=== PATIENT | female | born 1985 | race African-American/Black ===

== ENCOUNTER 2017-06-25 20:52 | Observation (INO) ==
[2017-06-25 21:52] LABS: Basophils % 0.6 %; Eosinophils # 0.1 K/mcL (0.0-0.6); Eosinophils % 1.4 %; Hematocrit 39.5 % (35.3-44.9); Hemoglobin 12.4 g/dL (11.5-15.4); Immature Granulocytes % 0.2 % (0-4); Lymphocytes # 2.7 K/mcL (0.6-4.6); Lymphocytes % 43.6 %; Mean Corpuscular HGB Conc 31.4 g/dL (31.6-35.5); Mean Corpuscular Hemoglobin 25.9 pg (28.0-33.3); Mean Corpuscular Volume 82.5 fL (83.0-100.0); Mean Platelet Volume 11.6 fL (9.4-12.4); Monocytes # 0.5 K/mcL (0.0-1.3); Monocytes % 8.6 %; Neutrophils # 2.9 K/mcL (1.6-8.9); Platelet Count 235 K/mcL (140-400); Red Blood Count 4.79 M/mcL (3.82-4.97); Red Cell Distribution Width 13.1 % (11.5-14.5); Segmented Neutrophils % 45.6 %
[2017-06-25 21:53] LABS: Bilirubin,Urine Negative (Negative); Blood,Urine Negative (Negative); Clarity,Urine Clear (Clear); Color,Urine Yellow (Yellow); Glucose,Urine (UA) Normal (Normal); Ketones,Urine Negative (Negative); Leukocyte Esterase,Urine Negative (Negative); Nitrite,Urine Negative (Negative); Protein,Urine Negative (Neg-Trace); Urobilinogen,Urine Normal (Normal)
[2017-06-25 22:07] LABS: BUN/Creatinine Ratio 8 (6-26); Blood Urea Nitrogen 8 mg/dL (7-20); Calcium 10.1 mg/dL (8.6-10.8); Carbon Dioxide 23 mEq/L (19-29); Chloride 112 mEq/L (98-109); Glucose 74 mg/dL (70-99); Osmolality,Calculated 291 (280-300); Potassium 3.6 mEq/L (3.5-4.5); Sodium 142 mEq/L (136-145); eGFR For African Americans > 60 (> 60); eGFR For Non-African Americans > 60 (> 60)
[2017-06-25] MEDS ORDERED: 0.9 % Sodium Chloride 1,000 ML IVC ONE (22:30)
[2017-06-25] MEDS ORDERED: Metoclopramide 10 MG/2 ML VIAL IVP ONE (22:41)
--- NOTE | 2017-06-25 22:43 | Emergency Department Note ---
Disposition Clinical Impression: Paresthesias, Weakness Headache Qualifiers: Headache type: unspecified Headache chronicity pattern: acute headache Intractability: not intractable Qualified Code(s): R51 - Headache Disposition: Admitted As Inpatient Condition: Good General Adult HPI - General Chief complaint: ED Seizure Stated complaint: seizure today STORY Time Seen by Provider: 06/25/17 21:54 Source: patient Limitations: no limitations Nursing Notes Reviewed: Yes Vital Signs Reviewed: Yes - History of Present Illness HPI Narrative: Patient here for evaluation of headache and paresthesias after seizure earlier today. The patient has been dealing with some unexplained nausea throughout the course of the week. She saw her neurologist earlier this week where she got a shot for her seizures. She does not know what the shot was one of those 4. States that it did help initially but the symptoms came back. Today the patient was on a riding lawnmower when she was able to feel her seizure coming on. Patient's got off the lawnmower and proceeded to have a seizure. The patient continued to have a headache after waking up from her seizure and was unable to relieve it at home which prompted her to come to the hospital. Patient does not have a history of migraines. Patient describes this as left- sided headache with photophobia and associated paresthesias on the left arm and left leg. On exam patient has significant difference to the upper and lower extremity with 4 out of 5 muscle strength. Neuro exam otherwise normal. Patient has not had any other symptoms similar to this in the past. Pain Scale: 10 - Related Data Home Medications Medication Instructions Recorded Confirmed LevETIRAcetam [Keppra] 1,000 mg PO BID 04/19/16 11/06/16 Topiramate [Topamax] 100 mg PO QAM 04/19/16 11/06/16 Paroxetine HCl [Paxil] 40 mg PO 02/27/17 Previous Rx's Medication Instructions Recorded Promethazine [Phenergan] 25 mg PO Q8HR PRN #15 tablet 02/27/17 Allergies Allergy/AdvReac Type Severity Reaction Status Date / Time No Known Allergies Allergy Verified 11/06/16 17:20 Review of Systems: CONSTITUTIONAL: No weight loss, fever, chills, weakness or fatigue. HEENT: Eyes: No visual changes. Ears, Nose, Throat: No hearing loss, difficulty talking or unable to swallow. SKIN: No rash or itching. CARDIOVASCULAR: No chest pain, chest pressure or chest discomfort. No palpitations or edema. RESPIRATORY: No shortness of breath, cough or sputum. GASTROINTESTINAL: No anorexia, nausea, vomiting or diarrhea. No abdominal pain or blood. GENITOURINARY: No burning on urination or hematuria. NEUROLOGICAL: Headache with paresthesias and weakness of the left side. No dizziness, syncope, No change in bowel or bladder control. MUSCULOSKELETAL: No muscle pain, back pain, joint pain or stiffness. 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 - Social History Smoking Status: Never smoker Smokeless Tobacco Status: No Alcohol use: Reports: none Drug use: Reports: none Physical Exam General appearance: NAD, conversant Eyes: anicteric sclerae, moist conjunctivae; PERRL HENT: Atraumatic; oropharynx clear with moist mucous membranes and no mucosal ulcerations Neck: Normal inspection; Trachea midline; FROM, supple Lungs: CTA, with normal respiratory effort and no intercostal retractions CV: RRR, no MRGs Abdomen: Soft, non-tender; no rebound or gaurding Extremities: No peripheral edema or extremity lymphadenopathy Skin: Normal temperature; no rash, ulcers or lesions Psych: Appropriate mood and affect Neuro: alert and oriented to person, place and time - General Limitations: no limitations General appearance: alert, in no apparent distress - Expanded Neurological Exam Patient oriented to: Present: person, place, time Speech: Present: fluid speech Cranial nerves: EOM function (II, III, IV, ): Normal, facial sensation (V): Normal, facial palsy (VII): Normal, gag reflex (IX): Normal, spinal accessory function (XI): Normal, tongue deviation (XII): Normal Cerebellar function: finger to nose: Normal, heel to donald: Normal Cerebellar function: normal gait Motor strength - LUE: 4/5 Motor strength - RUE: 5/5 Motor strength - LLE: 4/5 Motor strength - RLE: 5/5 Sensory exam upper extremity: light touch: Abnormal Left Sensory exam lower extremity: light touch: Abnormal Left Coma Scale Eye Opening: Spontaneous Coma Scale Motor Response: Obeys Commands Coma Scale Verbal Response: Oriented Coma Scale Total: 15 Course - Reevaluation(s) Reevaluation #1: Patient has continued symptoms after a migraine cocktail. - Consultations Consultation #1: Discussed with Dr. Martinez neurology. If patient does not respond to headache cocktail and fluids the patient should be admitted for further evaluation and MRI. He will be happy to see the patient has a consult in the hospital. Consultation #2: Discussed with hospitalist Dr. ASHLEY. Patient accepted for observation Vital Signs Temperature 97.4 F L 06/25/17 20:53 Pulse Rate 90 06/25/17 20:53 Respiratory Rate 16 06/25/17 20:53 Blood Pressure 108/79 06/25/17 20:53 O2 Sat by Pulse Oximetry 96 06/25/17 20:53 Temperature 98.2 F 06/26/17 05:02 Pulse Rate 68 06/26/17 05:02 Respiratory Rate 19 06/26/17 05:02 Blood Pressure 118/55 06/26/17 05:02 O2 Sat by Pulse Oximetry 98 06/26/17 05:02 Oxygen Delivery Oxygen Delivery Room Air Medical Decision Making - Lab Data Result diagrams: 06/25/17 21:40 06/25/17 21:40 Lab Results 06/25/17 06/25/17 06/25/17 Range/Units 21:40 21:40 21:40 WBC 6.3 (4.3-11.1) K/mcL RBC 4.79 (3.82-4.97) M/mcL Hgb 12.4 (11.5-15.4) g/dL Hct 39.5 (35.3-44.9) % MCV 82.5 L (83.0-100.0) fL MCH 25.9 L (28.0-33.3) pg MCHC 31.4 L (31.6-35.5) g/dL RDW 13.1 (11.5-14.5) % Plt Count 235 (140-400) K/mcL MPV 11.6 (9.4-12.4) fL Immature Gran % 0.2 (0-4) % Seg Neutrophils % 45.6 % Lymphocytes % 43.6 % Monocytes % 8.6 % Eosinophils % 1.4 % Basophils % 0.6 % Neutrophils # 2.9 (1.6-8.9) K/mcL Lymphocytes # 2.7 (0.6-4.6) K/mcL Monocytes # 0.5 (0.0-1.3) K/mcL Eosinophils # 0.1 (0.0-0.6) K/mcL Basophils # 0.0 (0.0-0.2) K/mcL Sodium (136-145) mEq/L Potassium (3.5-4.5) mEq/L Chloride (98-109) mEq/L Carbon Dioxide (19-29) mEq/L BUN (7-20) mg/dL Creatinine (0.57-1.11) mg/dL Est GFR ( Amer) (> 60) Est GFR (Non-Af Amer) (> 60) BUN/Creatinine Ratio (6-26) Glucose (70-99) mg/dL Calculated Osmolality (280-300) Calcium (8.6-10.8) mg/dL Troponin I (0-0.03) ng/mL Urine Color Yellow (Yellow) Urine Clarity Clear (Clear) Urine pH 7.0 (5.0-8.0) pH Units Ur Specific Ronald 1.010 (1.010-1.025) Urine Protein Negative (Neg-Trace) mg/dL Urine Glucose (UA) Normal (Normal) mg/dL Urine Ketones Negative (Negative) mg/dL Urine Blood Negative (Negative) Urine Nitrite Negative (Negative) Urine Bilirubin Negative (Negative) Urine Urobilinogen Normal (Normal) mg/dL Ur Leukocyte Esterase Negative (Negative) Ur Culture Indicated? NO (NO) Urine Test Negative (Negative) 06/25/17 06/26/17 Range/Units 21:40 00:37 WBC (4.3-11.1) K/mcL RBC (3.82-4.97) M/mcL Hgb (11.5-15.4) g/dL Hct (35.3-44.9) % MCV (83.0-100.0) fL MCH (28.0-33.3) pg MCHC (31.6-35.5) g/dL RDW (11.5-14.5) % Plt Count (140-400) K/mcL MPV (9.4-12.4) fL Immature Gran % (0-4) % Seg Neutrophils % % Lymphocytes % % Monocytes % % Eosinophils % % Basophils % % Neutrophils # (1.6-8.9) K/mcL Lymphocytes # (0.6-4.6) K/mcL Monocytes # (0.0-1.3) K/mcL Eosinophils # (0.0-0.6) K/mcL Basophils # (0.0-0.2) K/mcL Sodium 142 (136-145) mEq/L Potassium 3.6 (3.5-4.5) mEq/L Chloride 112 H (98-109) mEq/L Carbon Dioxide 23 (19-29) mEq/L BUN 8 (7-20) mg/dL Creatinine 1.00 (0.57-1.11) mg/dL Est GFR ( Amer) > 60 (> 60) Est GFR (Non-Af Amer) > 60 (> 60) BUN/Creatinine Ratio 8 (6-26) Glucose 74 (70-99) mg/dL Calculated Osmolality 291 (280-300) Calcium 10.1 (8.6-10.8) mg/dL Troponin I 0.00 (0-0.03) ng/mL Urine Color (Yellow) Urine Clarity (Clear) Urine pH (5.0-8.0) pH Units Ur Specific Ronald (1.010-1.025) Urine Protein (Neg-Trace) mg/dL Urine Glucose (UA) (Normal) mg/dL Urine Ketones (Negative) mg/dL Urine Blood (Negative) Urine Nitrite (Negative) Urine Bilirubin (Negative) Urine Urobilinogen (Normal) mg/dL Ur Leukocyte Esterase (Negative) Ur Culture Indicated? (NO) Urine Test (Negative) Attestation Statement - Attestation Attestation: I, Rashad Kamara, examined this patient and my medical decision-making was reviewed with the PASSENGER CAR UPHOLSTERER APPRENTICE/PA/Advanced Practice Nurse/Resident Physician. I agree with the documented findings, disposition and treatment plan as described except to the extent set forth below. 31-year-old female presents with headache and weakness of the left upper extremity and left lower extremity after a likely seizure. Patient states she has a history of seizures, she takes Keppra and Topamax. Patient states her last seizure was one week ago. Patient states she was mowing the lawn when she felt an aura prior to her seizure. She got down from the lawnmower however she states the wheels rolled over her left arm and leg. There is no obvious trauma to the left arm or leg on my exam. Initially the patient was fairly postictal and had a hard time giving a history. Patient was given medications for her headache which improved after their administration. Patient's symptoms of paresthesias and weakness could be secondary to Eb's paralysis versus atypical migraine however resident spoke with the neurologist who recommended if patient had persistent symptoms she should be evaluated in the emergency department for further care and evaluation.
[2017-06-25] MEDS ORDERED: Ketorolac 15 MG/ML VIAL IVP ONE (23:52)
--- NOTE | 2017-06-26 03:47 | Internal Med History&Physical ---
<Power Bowen - Last Filed: 06/26/17 04:06> Date of Encounter: 06/26/17 Time of Encounter: 03:43 Assessment and Plan (1) Seizure disorder Current visit: Yes Status: Chronic Patient currently on longterm control with Keppra/Topamax, which we will continue Neurology was consulted in the ED and will evaluate for possible MRI/EEG if necessary Ativan IV PRN for acute episodes of seizures (2) Headache Current visit: Yes Status: Chronic Likely migraine headache given unilateral description and signs of aura She has been on Topamax at home which we will continue; may benefit from Imitrex PRN Qualifiers: Headache type: unspecified Headache chronicity pattern: acute headache Intractability: not intractable Qualified Code(s): R51 - Headache (3) DVT prophylaxis Current visit: Yes Status: Acute Internal Medicine - H&P: HPI Chief complaint: seizure Admitted From: Home Plans for Post Hospital Care: Home History of present illness: Ms. Farley is a 31 year old female who presents with a seizure. She states it occurred at 230 PM yesterday while she was with her young daughter at home, and is unable to describe how long the episode was. She states she experienced some blurry vision prior to losing consciousness. Afterwards she was mildly confused and complained of a headache that started in the middle part of the backside and radiated to the front, worse on the left. The headaches are worse with light and sound. She had some nausea without vomiting and also a small amount of urine leaked as well, but denies tongue biting, vomiting, or numbness. She admits to previous history of seizures since the age of 4, and this episode is similar. She states she "grew out of them" and did not experience a seizure until 2 years ago when she had a hysterectomy but had post-surgical complications. She gets them frequently, about once or twice a week, and sees Dr. Cortes in [facility] regularly. She takes Keppra and Topamax and states her neurologist does not want this changed. Past Med Surg Social Fam HX - Past Medical History Medical history: DVT, seizures Psychiatric history: anxiety - Past Surgical History Surgical History: herniorrhaphy, hysterectomy - Social History Smoking Status: Never smoker Smokeless Tobacco Status: No Alcohol use: none Drug use: none Internal Medicine - H&P: Meds LevETIRAcetam [Keppra] 1,000 mg PO BID 04/19/16 [History] Topiramate [Topamax] 100 mg PO QAM 04/19/16 [History] Paroxetine HCl [Paxil] 40 mg PO 02/27/17 [History] Promethazine [Phenergan] 25 mg PO Q8HR PRN #15 tablet 02/27/17 [Rx] Allergies No Known Allergies Allergy (Verified 11/06/16 17:20) All Systems PM: A 10-system review of systems was performed and is negative for pertinent findings except as documented above in the HPI. - Constitutional Constitutional: no chills, no fever(s), no night sweats - EENT Eyes: blurry vision, no change in vision, no discharge, no pain, no photophobia Ears: no ear discharge, no ear pain, no tinnitus Nose, mouth and throat: no dysphagia, no nasal discharge, no neck pain, no sore throat - Cardiovascular Cardiovascular ROS IM: no chest pain, no diaphoresis, no dyspnea, no lightheadedness, no palpitations, no syncope - Respiratory Respiratory: no cough, no dyspnea, no wheezing, no excessive phlegm production - Gastrointestinal Gastrointestinal: nausea, no abdominal pain, no diarrhea, no hematemesis, no hematochezia, no melena, no vomiting - Genitourinary Genitourinary: urinary frequency (decreased), no change in urinary stream, no dysuria, no flank pain, no hematuria - Musculoskeletal Musculoskeletal ROS IM: no numbness, no tingling - Integumentary Integumentary IM: no rash, no unusual bruising - Neurological Neurological ROS: dizziness, headache(s), no confusion, no convulsions, no focal weakness, no numbness, no tingling, no tremor(s) - Hematologic/Lymphatic Hematologic/Lymphatic: no easy bruising - Constitutional Vitals: Temp Pulse Resp BP Pulse Ox 97.4 F L 63 16 106/77 97 06/25/17 20:53 06/26/17 01:29 06/26/17 01:29 06/26/17 01:29 06/26/17 01:29 General appearance: Present: cooperative, pleasant, no acute distress, answers questions appropriately - Head Head exam: Present: atraumatic, normocephalic - Eye Eye exam: Present: PERRL, conjuntiva pink, sclera anicteric - Neck Neck exam general surgery: Present: supple, trachea midline. Absent: lymphadenopathy - Respiratory Respiratory exam: Present: CTAB. Absent: accessory muscle use, rales, rhonchi, wheezes - Cardiovascular Cardiovascular exam: Present: RRR, +S1, +S2. Absent: diastolic murmur, gallop, rubs, systolic murmur - GI/Abdominal GI/Abdominal exam: Present: normal bowel sounds, soft, no peritoneal signs. Absent: distended, tenderness - Extremities Exam Extremities exam: Present: warm, radial pulses palpable and symetrical. Absent : calf tenderness, cyanotic, pedal edema - Neurological Exam Neurological exam: Present: alert, no focal deficits. Absent: facial droop, speech deficit - Skin Skin exam: Present: dry, intact Internal Med - H&P Results - Labs CBC & Chem 7: 06/25/17 21:40 06/25/17 21:40 <Miguel Larry - Last Filed: 06/26/17 06:41> Date of Encounter: 06/26/17 Internal Medicine - H&P: HPI History of present illness: Ms. Farley is a 31 year old female All Systems PM: A 10-system review of systems was performed and is negative for pertinent findings except as documented above in the HPI. - Constitutional Vitals: Temp Pulse Resp BP Pulse Ox 98.2 F 68 19 118/55 98 06/26/17 05:02 06/26/17 05:02 06/26/17 05:02 06/26/17 05:02 06/26/17 05:02 Internal Med - H&P Results - Labs CBC & Chem 7: 06/25/17 21:40 06/25/17 21:40 - Attending Attestation I examined this patient and my medical decision-making was reviewed with the Resident Physician, Dr. Bowen. I agree with the documented findings, disposition and treatment plan as described except to the extent set forth below. I have independently obtained history and examined the patient and my findings are summarized below: Patient presented to the hospital with a generalized seizure. She reportedly had intractable headache and tingling. Currently she reports that her headache has resolved. She is neurologically intact. Plan: We will place her in observation. Perform frequent neuro checks. Seizure precautions. Consult neurology. I will add urine toxicology screen.
[2017-06-26] MEDS ORDERED: Ondansetron 4 MG/2 ML VIAL IVP PRN (03:52)
[2017-06-26] MEDS ORDERED: Naloxone 0.4 MG/ML INJ IVP PRN (03:52)
[2017-06-26] MEDS ORDERED: Acetaminophen 325 MG TABLET PO PRN (03:52)
[2017-06-26] MEDS ORDERED: *HR* LORazepam 2 MG/ML VIAL IVP PRN (03:52)
[2017-06-26] MEDS ORDERED: Acetaminophen/Butalbital/CaffeineTABLET PO PRN (04:07)
[2017-06-26] MEDS ORDERED: *HR* Heparin 5,000 UNIT/ML VIAL SQ SCH (06:00)
[2017-06-26] MEDS ORDERED: levETIRAcetam 250 MG TABLET PO SCH (09:00)
[2017-06-26] MEDS ORDERED: Topiramate 100 MG TABLET PO SCH (09:00)
[2017-06-26 11:16] VITALS: BP 110/70
--- NOTE | 2017-06-26 12:22 | Neurology - Consult Note ---
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 Now symptoms resolved and she has nonfocal neurological examination. For the continuity of neurological care, i would not change her current antiepileptic therapy although apparently her seizures have not been well controlled. She is advised to follow up with her neurologist within one week to better her seizure treatment. an outpatient may be done after consulting her primary neurologist. History of Present Illness Chief complaint: seizure and headache HPI: Ms. Farley is a 31 year old female with PMH significant for seizure disorder who developed and seizure and prolonged headache, and left sided weakness. Patient developed a seizure yesterday. After which she developed rather prolonged headache, associated with left sided weakness to the left arm and leg. She was evaluated initially in ER here at [place], initial CT of head was normal. Patient sees Dr. Holliday her primary neurologist at [facility]. She actually saw him last week. Apparently he seizures have not been well controlled. She states that she at one time was sent to [facility] due to seizures and left sided weakness and was told that the left sided weakness was due to her having seizures. The left sided weakness lasted few days and then totally resolved. She is back to normal. Left sided weakness resolved. Headaches resolved. Told me that Dr. Holliday called her this morning that he does not want her seizure medications to be changed. She currently takes a combination of Topirmate 100mg bid and Keppra 1000mg bid. Past Med Surg Social Fam HX - Past Medical History Medical history: DVT, seizures Psychiatric history: anxiety - Past Surgical History Surgical History: herniorrhaphy, hysterectomy - Social History Smoking Status: Never smoker Smokeless Tobacco Status: No Alcohol use: none Drug use: none Medications and Allergies LevETIRAcetam [Keppra] 1,000 mg PO BID 04/19/16 [History] Topiramate [Topamax] 100 mg PO QAM 04/19/16 [History] Paroxetine HCl [Paxil] 40 mg PO DAILY 02/27/17 [History] Albuterol Sulfate [Albuterol Inhaler] 2 puff IH Q6HR PRN 06/26/17 [History] Menthol [Biofreeze] 1 appl TP DAILY PRN 06/26/17 [History] Allergies No Known Allergies Allergy (Verified 11/06/16 17:20) All Systems: A 10-system review of systems was performed and is negative for pertinent findings except as documented above in the HPI. Physical Examination - Vital Signs Vital Signs: Initial Vital Signs Temp Pulse Resp BP Pulse Ox 97.4 F L 90 16 108/79 96 06/25/17 20:53 06/25/17 20:53 06/25/17 20:53 06/25/17 20:53 06/25/17 20:53 - Constitutional General appearance: comfortable - Neurologic Sensorimotor examination: intact Detailed motor examination: grossly full strength in all extremities Motor examination - right side: 5/5: deltoids, biceps, triceps, wrist flexion, wrist extension, precast molder, hip flexors, tibialis Anterior, quadriceps, toe extension (EHL), plantarflexion Motor examination - left side: 5/5: deltoids, biceps, triceps, wrist flexion, wrist extension, hip flexors, precast molder, quadriceps, tibialis Anterior, toe extension (EHL), plantarflexion Detailed sensory examination: intact Reflex and gait examination: intact Reflexes: Biceps: 1+, Triceps: 1+, Brachioradialis: 1+, Patella: 1+, Achilles: 1 + Mental Status Examination: awake, alert, oriented to person, oriented to place, oriented to time, follows commands appropriately, answers questions appropriately, no agnosia, no aphasia, no aproxia Cranial nerve examination: PERRL, EOMI, visual amor intact, corneal reflexes brisk symmetrically, sensory to face intact, mastication intact, no facial asymmetry is present, no dysarthria, hearing is intact symmetrically, soft palate elevates bilaterally upon phonation, gag reflex intact, flexes SCM and trapezius muscles symmetrically with full power, tongue protrudes midline, no atrophy or facial fasiculations present Results - Laboratory Findings CBC and BMP: 06/25/17 21:40 06/25/17 21:40 Abnormal lab findings: Abnormal lab results MCV 82.5 fL (83.0-100.0) L 06/25/17 21:40 MCH 25.9 pg (28.0-33.3) L 06/25/17 21:40 MCHC 31.4 g/dL (31.6-35.5) L 06/25/17 21:40 Chloride 112 mEq/L (98-109) H 06/25/17 21:40 Consult Discharge Plan - Plan Referrals: Pastora Varner MD [Primary Care Provider] -
[2017-06-26 12:32] LABS: Amphetamine Screen,Urine Negative ng/mL (Cutoff=1000); Barbiturate Screen,Urine Negative ng/mL (Cutoff=200); Benzodiazepines Screen,Urine Negative ng/mL (Cutoff=200); Cannabinoid Screen,Urine Negative ng/mL (Cutoff = 50); Cocaine Screen,Urine Negative ng/mL (Cutoff= 300); Opiate Screen,Urine Negative ng/mL (Cutoff=300); Phencyclidine Screen,Urine Negative ng/mL (Cutoff=25)
--- NOTE | 2017-06-26 13:48 | Discharge Summary ---
Date of Encounter: 06/26/17 Time of Encounter: 11:55 - Discharge Diagnosis (1) Headache Priority: Secondary Status: Chronic Qualifiers: Headache type: unspecified Headache chronicity pattern: acute headache Intractability: not intractable Qualified Code(s): R51 - Headache (2) Seizure disorder Priority: Primary Status: Chronic (3) DVT prophylaxis Priority: Secondary Status: Acute - Discharge Medications Home Medications: LevETIRAcetam [Keppra] 1,000 mg PO BID 04/19/16 [History] Topiramate [Topamax] 100 mg PO QAM 04/19/16 [History] Paroxetine HCl [Paxil] 40 mg PO DAILY 02/27/17 [History] Albuterol Sulfate [Albuterol Inhaler] 2 puff IH Q6HR PRN 06/26/17 [History] Menthol [Biofreeze] 1 appl TP DAILY PRN 06/26/17 [History] Allergies/Adverse Reactions: Allergies No Known Allergies Allergy (Verified 11/06/16 17:20) Date of admission: 06/26/17 02:44 Primary care physician: Pastora Varner Consults: 06/26/17 03:52 Consult to Neurology [CONS] Routine Consulting Provider: Neurology [facility] Reason for Consult: seizure, Dr. Bee already contacted in the ED Call Completed: Yes Discharging clinician: Ashley Dick Anticipated date of discharge: 06/26/17 - Patient Status Disposition: Home, Self-Care Condition: Good Functional capacity at discharge: independent ambulation Overall status at discharge: patient is back to baseline - Discharge Instructions Follow Up With: Pastora Varner MD [Primary Care Provider] - 07/04/17 7:00 pm Oscar Holliday MD [Non-Partnered Physician] - 07/10/17 10:00 am Additional Instructions: Please follow up with your primary care physician and neurology within one week after your discharge from the hospital. Please resume all your home medications as prescribed by your primary care physician. - Diet and Activity Activity: resume usual activities as tolerated Diet: advance to your usual diet Hospital course: Ms. Farley is a 31 year old female with PMH of seizure disorder presented to the ER after having a seizure episode and severe headache. She was admitted overnight for observation. No recurrent seizures were witnessed since her hospitalization. She received Benadryl, Toradol, and Reglan in the ER with resolution of her headache. She was evaluated by neurology who states that patient should follow up with her primary neurologist as outpatient for alteration in her medications and no changes are recommended at this time. As per neurology, patient is stable for discharge. Patient is currently hemodynamically stable and reports of resolution of her presenting symptoms. Denies any distress at this time. She will be discharged to home with follow up with primary care physician and neurology. Pt demonstrates understanding of her diagnosis and agrees with her discharge care and plan. - Time Spent with Patient Total time spent providing and/or coordinating discharge services: Less than 30 minutes - Constitutional Vitals: Temp Pulse Resp BP Pulse Ox 98.6 F 76 16 110/70 96 06/26/17 11:15 06/26/17 11:15 06/26/17 11:15 06/26/17 11:15 06/26/17 11:15 General appearance: Present: cooperative, A&O X 3, pleasant, no acute distress, answers questions appropriately - Head Head exam: Present: atraumatic, normocephalic - Eye Eye exam: Present: conjuntiva pink, sclera anicteric - Respiratory Respiratory exam: Present: CTAB. Absent: accessory muscle use, rales, rhonchi, wheezes - Cardiovascular Cardiovascular exam: Present: RRR, +S1, +S2. Absent: diastolic murmur, gallop, rubs, systolic murmur - GI/Abdominal GI/Abdominal exam: Present: normal bowel sounds, soft, no peritoneal signs. Absent: distended, tenderness - Extremities Exam Extremities exam: Present: warm, radial pulses palpable and symetrical. Absent : calf tenderness, cyanotic, pedal edema - Neurological Exam Neurological exam: Present: alert, oriented X3, no focal deficits - Psychiatric Psychiatric exam: Present: normal affect, normal mood
--- NOTE | 2017-06-26 14:10 | Electrocardiograph Report ---
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
--- NOTE | 2017-06-26 14:16 | Electrocardiograph Report ---
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
== END 2017-06-26 15:29 | disposition home or self-care (01) ==
LOC: 2NENU 20:52 → EMEROO 20:52 → 2NENU 06-26 04:07
PROVIDERS: ADMIT Internal Medicine; ATTEND Internal Medicine

== ENCOUNTER 2017-11-20 14:56 | Observation (INO) ==
[2017-11-20 15:53] LABS: Bilirubin,Urine Negative (Negative); Blood,Urine Trace (Negative); Clarity,Urine Clear (Clear); Color,Urine Yellow (Yellow); Glucose,Urine (UA) Normal (Normal); Ketones,Urine Negative (Negative); Leukocyte Esterase,Urine Negative (Negative); Nitrite,Urine Negative (Negative); Protein,Urine Negative (Neg-Trace); Specific Gravity,Urine 1.014 (1.010-1.025); Urobilinogen,Urine Normal (Normal)
[2017-11-20 15:55] LABS: Bacteria,Urine None Seen per hpf (None-Few); Hyaline Casts,Urine None Seen per lpf (None-Few); RBC,Urine 0-3 per hpf (0-3); Squamous Epithelial Cell,Urine None Seen per lpf (None-Few); WBC,Urine 0-3 per hpf (0-3)
[2017-11-20] MEDS ORDERED: 0.9 % Sodium Chloride 1,000 ML IVC ONE (16:10)
[2017-11-20] MEDS ORDERED: Hyoscyamine SL 0.125 MG TAB.SUBL SL ONE (16:12)
[2017-11-20 16:13] LABS: Basophils % 0.7 %; Eosinophils # 0.1 K/mcL (0.0-0.6); Eosinophils % 1.8 %; Hematocrit 38.1 % (35.3-44.9); Hemoglobin 11.9 g/dL (11.5-15.4); Immature Granulocytes % 0.3 % (0-4); Lymphocytes # 2.4 K/mcL (0.6-4.6); Lymphocytes % 40.4 %; Mean Corpuscular HGB Conc 31.2 g/dL (31.6-35.5); Mean Corpuscular Hemoglobin 26.1 pg (28.0-33.3); Mean Corpuscular Volume 83.6 fL (83.0-100.0); Mean Platelet Volume 11.1 fL (9.4-12.4); Monocytes # 0.4 K/mcL (0.0-1.3); Monocytes % 7.2 %; Platelet Count 252 K/mcL (140-400); Red Blood Count 4.56 M/mcL (3.82-4.97); Segmented Neutrophils % 49.6 %
[2017-11-20 16:29] LABS: Alanine Aminotransferase 8 Units/L (7-52); Albumin 4.7 g/dL (3.5-5.7); Albumin/Globulin Ratio 1.6 (1.1-2.2); Alkaline Phosphatase 97 Units/L (34-104); Aspartate Amino Transferase 12 Units/L (13-39); BUN/Creatinine Ratio 7 (6-26); Bilirubin,Indirect 0.3 mg/dL (0.0-1.2); Bilirubin,Total 0.3 mg/dL (0.3-1.0); Blood Urea Nitrogen 9 mg/dL (6-20); Calcium 9.7 mg/dL (8.6-10.3); Carbon Dioxide 20 mEq/L (23-29); Chloride 109 mEq/L (98-107); Glucose 93 mg/dL (70-105); Lipase 20 Units/L (11-82); Osmolality,Calculated 282 (280-300); Potassium 3.6 mEq/L (3.5-5.1); Sodium 137 mEq/L (136-145); Total Protein 7.7 g/dL (6.4-8.9); eGFR For African Americans > 60 (> 60); eGFR For Non-African Americans 53 (> 60)
--- NOTE | 2017-11-20 16:55 | Emergency Department Note ---
Disposition Clinical Impression: Intractable abdominal pain Disposition: Admitted As Inpatient Condition: Good Referrals: Pastora Varner MD [Primary Care Provider] - Forms: ED Satisfaction Letter, Work/School Release Time of Disposition: 22:45 Abdominal Pain HPI - General Chief Complaint: ED Abdominal Pain Stated Complaint: RUQ pain-N/V Time Seen by Provider: 11/20/17 15:33 Source: patient Limitations: no limitations Nursing Notes Reviewed: Yes Vital Signs Reviewed: Yes - History of Present Illness HPI Narrative: The patient is a 31-year-old female that presents to the emergency department for abdominal pain and vomiting for the last 3 days. She states that she was seen in the emergency department approximately one to 2 weeks ago and was given Bactrim for a kidney infection. She states that she is still having left sided flank and abdominal pain with blood in her urine. She also reports that she is now having right upper quadrant pain. She states that the pain is better when she balls up into the position and is worse when she lays flat. She also states that the pain is worse after she eats. She states that the pain is intermittent and rates as a 10 out of 10. She has tried using Ultram from previous visit without any relief. She states that she just cannot get comfortable. She also feels like she is not having complete voice and is having to strain to urinate. She states that she has been in contact with Dr. Landers for a possible endoscopy. Pain Scale: 7 - Related Data Home Medications Medication Instructions Recorded Confirmed LevETIRAcetam [Keppra] 1,000 mg PO BID 04/19/16 09/23/17 Topiramate [Topamax] 100 mg PO QAM 04/19/16 09/23/17 Paroxetine HCl [Paxil] 40 mg PO DAILY 02/27/17 09/23/17 Albuterol Sulfate [Albuterol 2 puff IH Q6HR PRN 06/26/17 09/23/17 Inhaler] Tizanidine HCl [Zanaflex] 4 mg PO BID 09/23/17 09/23/17 Previous Rx's Medication Instructions Recorded Estrogens, Conjugated [Premarin 1 appl VG HS #1 tube 09/23/17 Cream] Sulfamethoxazole/Trimeth DS 1 each PO BID #28 tablet 10/30/17 [Bactrim DS] Allergies Allergy/AdvReac Type Severity Reaction Status Date / Time No Known Allergies Allergy Verified 11/06/16 17:20 All systems ED: reviewed and negative except as stated. 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 Absent: respiratory distress, wheezes - Cardiovascular Cardiovascular exam: Present: regular rate, normal rhythm, normal heart sounds, +S1, +S2 - Abdominal Exam Abdominal exam: Present: soft, tenderness, normal bowel sounds, Stokes's sign - Back Exam Back exam: Present: normal inspection, full ROM, CVA tenderness (R), CVA tenderness (L) - Neurological Exam Neurological exam: Present: alert, oriented X3 - Psychiatric Psychiatric exam: Present: normal affect, normal mood - Skin Skin exam: Present: warm, dry, intact Course Vital Signs Temperature 98.6 F 11/20/17 14:58 Pulse Rate 97 11/20/17 14:58 Respiratory Rate 16 11/20/17 14:58 Blood Pressure 142/99 11/20/17 14:58 O2 Sat by Pulse Oximetry 99 11/20/17 14:58 Temperature 98.6 F 11/20/17 14:58 Pulse Rate 120 11/20/17 23:10 Respiratory Rate 18 11/20/17 23:10 Blood Pressure 143/86 11/20/17 23:10 O2 Sat by Pulse Oximetry 97 11/20/17 23:10 Oxygen Delivery Oxygen Delivery Room Air Abdominal Pain - MDM Narrative Medical decision making narrative: Due the patient having abdominal pain including right upper quadrant and left flank pain we have ordered a CT with oral contrast. We also ordered CBC BMP, lipase, hepatic panel and a urinalysis. Also treat this patient with IV fluids and Levsin. Patient was given Dilaudid for pain medication. CT scan was negative and showed no acute abdominal pathology. Ultrasound showed mild thickening of the gallbladder burgos with no pericolic fluid.. There is no gallstones were noted on the ultrasound. Otherwise negative right upper quadrant ultrasound. The patient is still having persistent abdominal pain as well as vomiting despite Zofran and Dilaudid. The patient will be admitted to the hospital for intractable abdominal pain. Patient will likely need surgical evaluation for possible biliary colic. I spoke to the hospitalist at [phone] and they have accepted the patient to their service. The patient be admitted to the hospital at this time. - Medical Records Medical records reviewed: Yes I reviewed the patient's medical records. - Lab Data Lab results reviewed: Yes I reviewed the patient's lab results. Result diagrams: 11/20/17 15:58 11/20/17 15:58 Lab Results 11/20/17 11/20/17 11/20/17 Range/Units 15:48 15:48 15:58 WBC 6.0 (4.3-11.1) K/mcL RBC 4.56 (3.82-4.97) M/mcL Hgb 11.9 (11.5-15.4) g/dL Hct 38.1 (35.3-44.9) % MCV 83.6 (83.0-100.0) fL MCH 26.1 L (28.0-33.3) pg MCHC 31.2 L (31.6-35.5) g/dL RDW 13.0 (11.5-14.5) % Plt Count 252 (140-400) K/mcL MPV 11.1 (9.4-12.4) fL Immature Gran % 0.3 (0-4) % Seg Neutrophils % 49.6 % Lymphocytes % 40.4 % Monocytes % 7.2 % Eosinophils % 1.8 % Basophils % 0.7 % Neutrophils # 3.0 (1.6-8.9) K/mcL Lymphocytes # 2.4 (0.6-4.6) K/mcL Monocytes # 0.4 (0.0-1.3) K/mcL Eosinophils # 0.1 (0.0-0.6) K/mcL Basophils # 0.0 (0.0-0.2) K/mcL Sodium (136-145) mEq/L Potassium (3.5-5.1) mEq/L Chloride (98-107) mEq/L Carbon Dioxide (23-29) mEq/L BUN (6-20) mg/dL Creatinine (0.60-1.20) mg/dL Est GFR ( Amer) (> 60) Est GFR (Non-Af Amer) (> 60) BUN/Creatinine Ratio (6-26) Glucose (70-105) mg/dL Calculated Osmolality (280-300) Calcium (8.6-10.3) mg/dL Total Bilirubin (0.3-1.0) mg/dL Direct Bilirubin (0.0-0.2) mg/dL Indirect Bilirubin (0.0-1.2) mg/dL AST (13-39) Units/L ALT (7-52) Units/L Alkaline Phosphatase (34-104) Units/L Serum Total Protein (6.4-8.9) g/dL Albumin (3.5-5.7) g/dL Globulin (2.4-3.5) g/dL Albumin/Globulin Ratio (1.1-2.2) Lipase (11-82) Units/L Urine Color Yellow (Yellow) Urine Clarity Clear (Clear) Urine pH 6.0 (5.0-8.0) pH Units Ur Specific [place] 1.014 (1.010-1.025) Urine Protein Negative (Neg-Trace) mg/dL Urine Glucose (UA) Normal (Normal) mg/dL Urine Ketones Negative (Negative) mg/dL Urine Blood Trace H (Negative) Urine Nitrite Negative (Negative) Urine Bilirubin Negative (Negative) Urine Urobilinogen Normal (Normal) mg/dL Ur Leukocyte Esterase Negative (Negative) Urine Microscopic RBC 0-3 (0-3) per hpf Urine Microscopic WBC 0-3 (0-3) per hpf Ur Squamous Epith Cells None Seen (None-Few) per lpf Urine Bacteria None Seen (None-Few) per hpf Hyaline Casts None Seen (None-Few) per lpf Ur Culture Indicated? NO (NO) Urine Test Negative (Negative) 11/20/17 Range/Units 15:58 WBC (4.3-11.1) K/mcL RBC (3.82-4.97) M/mcL Hgb (11.5-15.4) g/dL Hct (35.3-44.9) % MCV (83.0-100.0) fL MCH (28.0-33.3) pg MCHC (31.6-35.5) g/dL RDW (11.5-14.5) % Plt Count (140-400) K/mcL MPV (9.4-12.4) fL Immature Gran % (0-4) % Seg Neutrophils % % Lymphocytes % % Monocytes % % Eosinophils % % Basophils % % Neutrophils # (1.6-8.9) K/mcL Lymphocytes # (0.6-4.6) K/mcL Monocytes # (0.0-1.3) K/mcL Eosinophils # (0.0-0.6) K/mcL Basophils # (0.0-0.2) K/mcL Sodium 137 (136-145) mEq/L Potassium 3.6 (3.5-5.1) mEq/L Chloride 109 H (98-107) mEq/L Carbon Dioxide 20 L (23-29) mEq/L BUN 9 (6-20) mg/dL Creatinine 1.21 H (0.60-1.20) mg/dL Est GFR ( Amer) > 60 (> 60) Est GFR (Non-Af Amer) 53 L (> 60) BUN/Creatinine Ratio 7 (6-26) Glucose 93 (70-105) mg/dL Calculated Osmolality 282 (280-300) Calcium 9.7 (8.6-10.3) mg/dL Total Bilirubin 0.3 (0.3-1.0) mg/dL Direct Bilirubin 0.0 (0.0-0.2) mg/dL Indirect Bilirubin 0.3 (0.0-1.2) mg/dL AST 12 L (13-39) Units/L ALT 8 (7-52) Units/L Alkaline Phosphatase 97 (34-104) Units/L Serum Total Protein 7.7 (6.4-8.9) g/dL Albumin 4.7 (3.5-5.7) g/dL Globulin 3.0 (2.4-3.5) g/dL Albumin/Globulin Ratio 1.6 (1.1-2.2) Lipase 20 (11-82) Units/L Urine Color (Yellow) Urine Clarity (Clear) Urine pH (5.0-8.0) pH Units Ur Specific [place] (1.010-1.025) Urine Protein (Neg-Trace) mg/dL Urine Glucose (UA) (Normal) mg/dL Urine Ketones (Negative) mg/dL Urine Blood (Negative) Urine Nitrite (Negative) Urine Bilirubin (Negative) Urine Urobilinogen (Normal) mg/dL Ur Leukocyte Esterase (Negative) Urine Microscopic RBC (0-3) per hpf Urine Microscopic WBC (0-3) per hpf Ur Squamous Epith Cells (None-Few) per lpf Urine Bacteria (None-Few) per hpf Hyaline Casts (None-Few) per lpf Ur Culture Indicated? (NO) Urine Test (Negative) - Radiology Data Radiology results reviewed: Yes I reviewed the patient's radiology results. Abdomen/Pelvis CT 11/20/17 19:00 IMPRESSION: 1. No acute abnormality noted. D/ / Eb Murphy MD / Eb Murphy MD Interpreting Provider: Eb Murphy MD Gallbladder Ultrasound 11/20/17 19:53 IMPRESSION: 1. Mildly thick walled appearance of the gallbladder, though no evident gallstones or pericholecystic fluid. The patient also demonstrated a negative sonographic Stokes's sign. The wall thickness likely represents normal variant. However, consider a follow-up nuclear medicine HIDA scan if there remains clinical concern for cholecystitis. 2. Otherwise, normal right upper quadrant ultrasound. D/ / 11/20/2017 21:45:14 Madhav Pastor MD / Rubi Flores Interpreting Provider: Madhav Pastor MD Attestation Statement - Attestation Attestation: I, Emigdio Laughlin DO, examined this patient [id number] and my medical decision-making was reviewed with Dr. Albino Delgado, Resident Physician. I agree with the documented findings, disposition and treatment plan as described except to the extent set forth below. Please see my progress notes for details. 31-year-old female presents to emergency room with complaint of right upper quadrant abdominal pain as well as left-sided flank pain. Symptom onset 2-3 days ago. She has also had some intermittent diarrhea but had constipation prior to that. She has a history of endometriosis requiring surgical total hysterectomy. Patient denies any history of bowel obstruction or adhesions. Denies any significant scarring. Vital signs on presentation are unremarkable. Patient is afebrile. Physical exam shows a well-appearing female she is in some moderate distress her lungs are clear heart is regular her abdomen is soft but does have tenderness diffusely worse in the right upper quadrant and left flank in comparison to the rest of the abdomen. She does have some mild CVA tenderness and radiation to the left flank at this time. Patient is concerning for possible gallbladder related disease versus kidney stone considering she has both of these in her history. Symptoms will be treated for biliary colic check for urinalysis and as well as CT imaging of the abdomen to be resulted with possibility of ultrasound of the right upper quadrant to address gallbladder related pathology. Patient otherwise is resting in the bed with no other specific medical history this time. She will get oral contrast with no IV contrast looking for possible obstruction. Patient is comfortable with this plan and understands risks and benefits. She is resting comfortable with this time with fluids. Medication etiology medication provided. Otherwise workup is unremarkable at this point. Disposition pending the treatment course and evaluation. See detailed documentation of the physical exam, medical intervention, medical decision-making and disposition in the resident physician' s note [address] of the abdomen. No acute signs of obstruction renal stone or inflammatory changes. An upper quadrant ultrasound ordered at this time. Rest of her labs are unremarkable. Symptoms are more consistent at this time a biliary colic and spasm. Pain medication provided a second dose and ultrasound to be ordered at this time. Patient admitted for intractable nausea and vomiting. Symptoms could be concerning for possible seeking tendencies. Patient otherwise is negative evaluation. Disposition will be admission at this time.
[2017-11-20] MEDS ORDERED: Ondansetron 4 MG/2 ML VIAL IVP ONE ×2 (18:01→22:38)
[2017-11-20] MEDS ORDERED: *HR* HYDROmorphone (PF) 1 MG/ML SYRINGE IVP ONE ×3 (18:10→22:20)
[2017-11-21] MEDS ORDERED: Topiramate 25 MG CAP.SPRINK PO ONE (02:10)
[2017-11-21] MEDS: Ondansetron 4 MG/2 ML VIAL IVP PRN ×3 (02:29→21:43)
[2017-11-21] MEDS: 0.9 % Sodium Chloride 1,000 ML IVC SCH ×4 (02:30→14:55)
[2017-11-21] MEDS: *HR* HYDROmorphone (PF) 1 MG/ML SYRINGE IVP PRN ×4 (02:30→18:06)
--- NOTE | 2017-11-21 02:38 | Internal Med History&Physical ---
Date of Encounter: 11/21/17 Time of Encounter: 02:31 Assessment and Plan (1) Intractable abdominal pain Current visit: Yes Status: Acute Continue IVF, symptomatic treatment with Dilaudid and Zofran. Consult surgery in AM. Start trial of PPI, GI cocktail. NPO. (2) Acute kidney injury Current visit: Yes Status: Acute Due to dehydration. Renally dose medications and give additional 2 L bolus followed by normal saline at 125 ml/hr. (3) Seizure disorder Current visit: No Status: Chronic Keppra to IV since patient not tolerating PO. Topamax resumed if patient can tolerate. (4) DVT prophylaxis Current visit: No Status: Acute Past medical history states patient has history of DVT. will start on heparin. Internal Medicine - H&P: HPI Admitted From: Home History of present illness: Ms. Farley is a 31 year old female with PMH of seizure disorder presents for three day history of abdominal pain, n/v. She states she was in ED 2 weeks ago and trated for UTI. She is complaining of blood in urine and left flank pain, as well as right upper quadrant pain, rated 10/10 in severity. No known alleviating factor. Pain is worse after eating. She states she was in contact with Dr. Landers for possible endoscopy. In ED patient treated with Zofran and Dilaudid. She notes that Dilaudid was able to take her pain down. She had A CT of abdomen/pelvis that was unremarkable. A urinalysis was negative outside of trace hematuria. A right upper quadrant ultrasound showed mildly thick gall bladder but no fluid collection and no stones. She states she was supposed to have possible endoscopy with Dr. Landers. Denies fevers/chills, change in stool. Emesis described as liquid/clear occasionally light yellow in appearance. She was found to have KELIN and is dehydrated. Nursing reported that patient had a seizure today. She is on Keppra and Topamax and having difficulty with PO. Past Med Surg Social Fam HX - Past Medical History Medical history: DVT, seizures Psychiatric history: anxiety - Past Surgical History Surgical History: herniorrhaphy, hysterectomy - Social History Smoking Status: Never smoker Smokeless Tobacco Status: No Alcohol use: none Drug use: none - Family History Brother Living Status: Hx Family Cardiac Disorders: Yes (Heart Defect) Grandfather Living Status: Hx Family Cardiac Disorders: Yes (Stroke) Grandmother Living Status: Still Living Hx Family Cardiac Disorders: (IA) Hx Family Endocrine Disorder: (DM) Internal Medicine - H&P: Meds LevETIRAcetam [Keppra] 1,000 mg PO BID 04/19/16 [History] Topiramate [Topamax] 100 mg PO QAM 04/19/16 [History] Paroxetine HCl [Paxil] 40 mg PO DAILY 02/27/17 [History] Albuterol Sulfate [Albuterol Inhaler] 2 puff IH Q6HR PRN 06/26/17 [History] Tizanidine HCl [Zanaflex] 4 mg PO BID 09/23/17 [History] Cranberry Conc/C/Bacill Coag [Azo Cranberry Tablet] 1 each PO BID 11/21/17 [ History] 3 Allergy/AdvReac Type Severity Reaction Status Date / Time No Known Allergies Allergy Verified 11/06/16 17:20 All Systems PM: A 10-system review of systems was performed and is negative for pertinent findings except as documented above in the HPI. - Constitutional Constitutional: fatigue, no fever(s) - Cardiovascular Cardiovascular ROS IM: no chest pain, no diaphoresis, no dyspnea, no lightheadedness, no palpitations, no syncope - Respiratory Respiratory: no cough, no dyspnea, no wheezing, no excessive phlegm production - Gastrointestinal Gastrointestinal: abdominal pain, vomiting, no change in bowel habits, no dysphagia, no heartburn, no hematemesis, no hematochezia, no loose stools - Genitourinary Genitourinary: no change in urinary stream, no dysuria, no flank pain, no hematuria - Musculoskeletal Additional comments: right flank pain - Neurological Neurological ROS: convulsions Additional comments: brief - Constitutional Vitals: Temp Pulse Resp BP Pulse Ox 97.8 F 78 16 140/90 99 11/21/17 00:26 11/21/17 00:26 11/21/17 00:26 11/21/17 00:26 11/21/17 00:26 - Head Head exam: Present: atraumatic, normocephalic - Eye Eye exam: Present: PERRL, conjuntiva pink, sclera anicteric Pupils: Present: PERRL - Neck Neck exam general surgery: Present: supple, trachea midline. Absent: lymphadenopathy - Respiratory Respiratory exam: Present: CTAB. Absent: accessory muscle use, rales, rhonchi, wheezes - Cardiovascular Cardiovascular exam: Present: RRR, +S1, +S2. Absent: diastolic murmur, gallop, rubs, systolic murmur - GI/Abdominal GI/Abdominal exam: Present: normal bowel sounds, soft, tenderness, no peritoneal signs. Absent: distended - Extremities Exam Extremities exam: Present: warm, radial pulses palpable and symmetrical. Absent : calf tenderness, cyanotic, pedal edema - Neurological Exam Neurological exam: Present: CN II-XII intact, oriented X3, no focal deficits. Absent: pronater drift, facial droop, speech deficit - Skin Skin exam: Present: dry, intact Internal Med - H&P Results - Labs CBC & Chem 7: 11/20/17 15:58 11/20/17 15:58
[2017-11-21] MEDS ORDERED: GI Cocktail 40 ML EACH PO ONE (02:44)
[2017-11-21] MEDS ORDERED: Naloxone 0.4 MG/ML INJ IVP PRN (02:48)
[2017-11-21] MEDS ORDERED: levETIRAcetam 1,000 MG in 0.9 % Sodium Chloride 100 ML IVPB SCH (03:00)
[2017-11-21 05:06] LABS: BUN/Creatinine Ratio 7 (6-26); Blood Urea Nitrogen 7 mg/dL (6-20); Calcium 8.4 mg/dL (8.6-10.3); Carbon Dioxide 21 mEq/L (23-29); Chloride 117 mEq/L (98-107); Glucose 88 mg/dL (70-105); Osmolality,Calculated 297 (280-300); Potassium 3.8 mEq/L (3.5-5.1); Sodium 145 mEq/L (136-145); eGFR For African Americans > 60 (> 60); eGFR For Non-African Americans > 60 (> 60)
[2017-11-21] MEDS: *HR* Heparin 5,000 UNIT/ML VIAL SQ SCH ×2 (05:09→18:07)
[2017-11-21 05:30] LABS: Basophils # 0.1 K/mcL (0.0-0.2); Basophils % 0.8 %; Eosinophils # 0.2 K/mcL (0.0-0.6); Eosinophils % 2.6 %; Hematocrit 35.3 % (35.3-44.9); Hemoglobin 10.8 g/dL (11.5-15.4); Immature Granulocytes % 0.3 % (0-4); Lymphocytes # 3.6 K/mcL (0.6-4.6); Lymphocytes % 54.1 %; Mean Corpuscular HGB Conc 30.6 g/dL (31.6-35.5); Mean Corpuscular Hemoglobin 26.3 pg (28.0-33.3); Mean Corpuscular Volume 86.1 fL (83.0-100.0); Mean Platelet Volume 11.4 fL (9.4-12.4); Monocytes # 0.5 K/mcL (0.0-1.3); Neutrophils # 2.3 K/mcL (1.6-8.9); Platelet Count 240 K/mcL (140-400); Red Cell Distribution Width 13.2 % (11.5-14.5); Segmented Neutrophils % 34.2 %
[2017-11-21] MEDS: Acetaminophen 325 MG TABLET PO PRN ×2 (06:59→14:53)
[2017-11-21] MEDS: Pantoprazole 40 MG VIAL IVP SCH (09:41)
--- NOTE | 2017-11-21 11:27 | Event Note ---
Date of Encounter: 11/21/17 Time of Encounter: 11:00 Patient was seen and examined. She continues to have right upper quadrant pain. She tells me it is mostly with food. Her workup in the ED including a CT abdomen and pelvis which was negative and right upper quadrant ultrasound which showed mild thickening. Her electrolytes and laboratory workup has been unremarkable. I will order a HIDA scan and await surgery to see the patient. She tells me she was going to get an EGD done by Dr. Landers, although she is not exactly able to tell me when the EGD was scheduled. We will continue with IV fluids and pain control. Patient is nothing by mouth.
--- NOTE | 2017-11-21 11:53 | General Surgery Consult Note ---
<Dequan Trejo - Last Filed: 11/21/17 17:49> Date of Encounter: 11/21/17 Time of Encounter: 11:38 Assessment and Plan (1) RUQ abdominal pain Current Visit: Yes Status: Acute CT Scan abd/pelvis 11/20/2017 - no acute findings. U/S RUQ 11/21/2017 - Mildly thick-walled appearance of the gallbladder, though no evident gallstones or pericholecystic fluid. Positive for RUQ. neg for leukocystosis, fever, jaundice, shock (nml BP and HR), murphys, and AMS. Bili 0.3. Alk Phos 97. AST 12, ALT 8, lipase 20. - HIDA scan scheduled for 11/22 in AM. unable to perform today due to last dose of dilaudid. - continue hydration - continue PPI - hydromorphone hold at midnight for HIDA and will resume post scan. acetaminophen for pain PRN (2) Seizure disorder Current Visit: Yes Status: Chronic Prv hx of seizure, self reported acute seizures. per management of medicine team (3) Acute kidney injury Current Visit: Yes Status: Acute U/A trace blood. per management of medicine team. History of Present Illness Consult date: 11/21/17 Reason for consult: abdominal pain (RUQ) Requesting physician: Dorian Doan History of present illness: Ms patton is a 31 year old female w/ PMH of total hysterectomy, and umbilical hernia repair here for RUQ pain inducing seizures, mid bilateral abd pain with self reported blood in urine, and recent ED visit for UTI. Patient states that the pain started two weeks ago and that "i know it's my gallbladder and I would like it removed". The pain is worsened with food consumption, and nothing relieves the pain. Pain is 10/10 severity. Since hospitalization she's received dilaudid and zofran without relief of symptoms. She has associated nausea, and vomiting. She also states that the pain has induced "grand-mal" seizures with loss of bladder functionality and biting of her tongue. She stated she has a known seizure history since she was 4 yo. Bowel movements and stool have been "yellow". Patient has previous episode of RUQ pain treated at a different hospital and given what she thinks was "ursodiol". Patient stated that her sister and mother had their gallbladder removed recently. Patient denies yellowing of skin, fever, chills, or history of STI's. CT abdomen was unremarkable, and RUQ U/S mildly thick walled appearance of gallbladder. Patient states that she is hungry and would like to eat. Patient reports that her UTI has returned because she's having bilateral mid- lateral pain that is 10/10 severity, and is having blood on urination with burning. Past Med Surg Social Fam HX - Past Medical History Medical history: DVT, seizures Psychiatric history: anxiety - Past Surgical History Surgical History: herniorrhaphy, hysterectomy - Social History Smoking Status: Never smoker Smokeless Tobacco Status: No Alcohol use: none Drug use: none - Family History Brother Living Status: Hx Family Cardiac Disorders: Yes (Heart Defect) Grandfather Living Status: Hx Family Cardiac Disorders: Yes (Stroke) Grandmother Living Status: Still Living Hx Family Cardiac Disorders: (IA) Hx Family Endocrine Disorder: (DM) Medications and Allergies LevETIRAcetam [Keppra] 1,000 mg PO BID 04/19/16 [History] Topiramate [Topamax] 100 mg PO QAM 04/19/16 [History] Paroxetine HCl [Paxil] 40 mg PO DAILY 02/27/17 [History] Cranberry Conc/C/Bacill Coag [Azo Cranberry Tablet] 1 each PO BID 11/21/17 [ History] 3 Allergy/AdvReac Type Severity Reaction Status Date / Time No Known Allergies Allergy Verified 11/21/17 07:37 Review of Systems All systems PM: A 10-system review of systems was performed and is negative for pertinent findings except as documented above in the HPI. - Constitutional anorexia (due to pain upon consumption of food.), fatigue, no chills, no headache(s), no increased appetite - EENT Nose, mouth and throat: no mouth lesions, no mouth pain - Cardiovascular no chest pain, no diaphoresis, no dyspnea, no palpitations, no rapid heart rate - Respiratory no dyspnea, no wheezing - Gastrointestinal abdominal pain (moderate discomfort in RUQ and bilateral flanks), change in bowel habits, loose stools, vomiting, no belching, no bloating, no coffee ground emesis, no excessive flatus - Integumentary no change in pigmentation, no new lesions, no pruritus, no rash, no jaundice - Psychiatric no depression - Endocrine no change in body appearance, no excessive sweating, no flushing, no heat intolerance, no palpitations - Hematologic/Lymphatic no easy bleeding, no easy bruising, no lymphadenopathy General Surgery Exam Initial Vital Signs Temp Pulse Resp BP Pulse Ox 98.6 F 97 16 142/99 99 11/20/17 14:58 11/20/17 14:58 11/20/17 14:58 11/20/17 14:58 11/20/17 14:58 - General physical appearance well developed, well nourished, no distress - Eyes PERRL, normal ocular movement. negative: pale, icteric, loss of movement - ENT normal nares, normal mucosa, no hearing loss, no congestion - Neck no masses, no bruits, no venous distension - Respiratory normal expansion, normal respiratory effort, clear to percussion, clear to auscultation - Cardiovascular Cardiovascular exam: Present: RRR, 15, 16 - Abdomen Abdomen general surgery: Present: bowel sounds present, soft, non tender, surgical scars (subumbilical healed scar) Abdominal Tenderness: Present: RUQ, diffusely - Genitourinary Present: other - Integumentary Integumentary general surgery: Present: warm and dry, no abnormal pigmentation, other (no visible yellowing of skin) - Neurologic Present: CN 2-12 grossly intact, normal coordination, normal sensation - Musculoskeletal Present: normal posture - Psychiatric Psychiatric general surgery: Present: A&Ox3, appropriate, oriented to person, oriented to place, oriented to time, speech is normal, memory intact, other ( possible displaying of spliting. Patient did not display discomfort or pain until prompted) - Additional Findings negative kendall's. no CVA tenderness, or suprapubic pain. Exam Initial Vital Signs Temp Pulse Resp BP Pulse Ox 98.6 F 97 16 142/99 99 11/20/17 14:58 11/20/17 14:58 11/20/17 14:58 11/20/17 14:58 11/20/17 14:58 Results - Labs 11/21/17 04:10 11/21/17 04:10 Abnormal lab results Hgb 10.8 g/dL (11.5-15.4) L 11/21/17 04:10 MCH 26.3 pg (28.0-33.3) L 11/21/17 04:10 MCHC 30.6 g/dL (31.6-35.5) L 11/21/17 04:10 Chloride 117 mEq/L (98-107) H 11/21/17 04:10 Carbon Dioxide 21 mEq/L (23-29) L 11/21/17 04:10 Calcium 8.4 mg/dL (8.6-10.3) L 11/21/17 04:10 AST 12 Units/L (13-39) L 11/20/17 15:58 Urine Blood Trace (Negative) H 11/20/17 15:48 Diabetes panel 11/21/17 Range/Units 04:10 Sodium 145 (136-145) mEq/L Potassium 3.8 (3.5-5.1) mEq/L Chloride 117 H (98-107) mEq/L Carbon Dioxide 21 L (23-29) mEq/L BUN 7 (6-20) mg/dL Creatinine 1.03 (0.60-1.20) mg/dL Glucose 88 (70-105) mg/dL Calcium 8.4 L (8.6-10.3) mg/dL Calcium panel 11/21/17 Range/Units 04:10 Calcium 8.4 L (8.6-10.3) mg/dL Pituitary panel 11/21/17 Range/Units 04:10 Sodium 145 (136-145) mEq/L Potassium 3.8 (3.5-5.1) mEq/L Chloride 117 H (98-107) mEq/L Carbon Dioxide 21 L (23-29) mEq/L BUN 7 (6-20) mg/dL Creatinine 1.03 (0.60-1.20) mg/dL Glucose 88 (70-105) mg/dL Calcium 8.4 L (8.6-10.3) mg/dL Adrenal panel 11/21/17 Range/Units 04:10 Sodium 145 (136-145) mEq/L Potassium 3.8 (3.5-5.1) mEq/L Chloride 117 H (98-107) mEq/L Carbon Dioxide 21 L (23-29) mEq/L BUN 7 (6-20) mg/dL Creatinine 1.03 (0.60-1.20) mg/dL Glucose 88 (70-105) mg/dL Calcium 8.4 L (8.6-10.3) mg/dL All other labs normal. Consult Discharge Plan - Plan Referrals: Pastora Varner MD [Primary Care Provider] - <Ajay Landers - Last Filed: 11/22/17 14:12> Date of Encounter: 11/21/17 Review of Systems All systems PM: A 10-system review of systems was performed and is negative for pertinent findings except as documented above in the HPI. General Surgery Exam Initial Vital Signs Temp Pulse Resp BP Pulse Ox 98.6 F 97 16 142/99 99 11/20/17 14:58 11/20/17 14:58 11/20/17 14:58 11/20/17 14:58 11/20/17 14:58 Exam Initial Vital Signs Temp Pulse Resp BP Pulse Ox 98.6 F 97 16 142/99 99 11/20/17 14:58 11/20/17 14:58 11/20/17 14:58 11/20/17 14:58 11/20/17 14:58 Results - Labs 11/22/17 08:41 11/22/17 08:41 Abnormal lab results Hgb 10.8 g/dL (11.5-15.4) L 11/21/17 04:10 MCH 26.3 pg (28.0-33.3) L 11/21/17 04:10 MCHC 30.6 g/dL (31.6-35.5) L 11/21/17 04:10 Chloride 117 mEq/L (98-107) H 11/21/17 04:10 Carbon Dioxide 21 mEq/L (23-29) L 11/21/17 04:10 Calcium 8.4 mg/dL (8.6-10.3) L 11/21/17 04:10 AST 12 Units/L (13-39) L 11/20/17 15:58 Urine Blood Trace (Negative) H 11/20/17 15:48 Diabetes panel 11/21/17 Range/Units 04:10 Sodium 145 (136-145) mEq/L Potassium 3.8 (3.5-5.1) mEq/L Chloride 117 H (98-107) mEq/L Carbon Dioxide 21 L (23-29) mEq/L BUN 7 (6-20) mg/dL Creatinine 1.03 (0.60-1.20) mg/dL Glucose 88 (70-105) mg/dL Calcium 8.4 L (8.6-10.3) mg/dL Calcium panel 11/21/17 Range/Units 04:10 Calcium 8.4 L (8.6-10.3) mg/dL Pituitary panel 11/21/17 Range/Units 04:10 Sodium 145 (136-145) mEq/L Potassium 3.8 (3.5-5.1) mEq/L Chloride 117 H (98-107) mEq/L Carbon Dioxide 21 L (23-29) mEq/L BUN 7 (6-20) mg/dL Creatinine 1.03 (0.60-1.20) mg/dL Glucose 88 (70-105) mg/dL Calcium 8.4 L (8.6-10.3) mg/dL Adrenal panel 11/21/17 Range/Units 04:10 Sodium 145 (136-145) mEq/L Potassium 3.8 (3.5-5.1) mEq/L Chloride 117 H (98-107) mEq/L Carbon Dioxide 21 L (23-29) mEq/L BUN 7 (6-20) mg/dL Creatinine 1.03 (0.60-1.20) mg/dL Glucose 88 (70-105) mg/dL Calcium 8.4 L (8.6-10.3) mg/dL All other labs normal. - Attending Attestation I examined this patient and my medical decision-making was reviewed with the Resident Physician. I agree with the documented findings, disposition and treatment plan as described except to the extent set forth below. The patient is seen and evaluated with resident. The patient has right upper quadrant pain however workup by CAT scan and ultrasound are equivocal. She was scheduled for upper endoscopy. She will require further workup with hepatobiliary scan. Further surgery based on findings. Ajay Landers MD FACS
[2017-11-21] MEDS: levETIRAcetam 1,000 MG in 0.9 % Sodium Chloride 100 ML IVPB SCH (12:22)
[2017-11-22] MEDS: levETIRAcetam 1,000 MG in 0.9 % Sodium Chloride 100 ML IVPB SCH (00:30)
[2017-11-22] MEDS: 0.9 % Sodium Chloride 1,000 ML IVC SCH ×2 (00:33→11:10)
[2017-11-22] MEDS: Topiramate 100 MG TABLET PO SCH (08:49)
[2017-11-22] MEDS: Ondansetron 4 MG/2 ML VIAL IVP PRN ×2 (08:49→22:23)
[2017-11-22] MEDS: Pantoprazole 40 MG VIAL IVP SCH (08:49)
[2017-11-22 08:50] LABS: Basophils % 0.8 %; Eosinophils # 0.2 K/mcL (0.0-0.6); Hematocrit 34.2 % (35.3-44.9); Hemoglobin 10.5 g/dL (11.5-15.4); Lymphocytes # 2.3 K/mcL (0.6-4.6); Lymphocytes % 57.3 %; Mean Corpuscular HGB Conc 30.7 g/dL (31.6-35.5); Mean Corpuscular Hemoglobin 26.2 pg (28.0-33.3); Mean Corpuscular Volume 85.3 fL (83.0-100.0); Mean Platelet Volume 10.8 fL (9.4-12.4); Monocytes # 0.3 K/mcL (0.0-1.3); Neutrophils # 1.2 K/mcL (1.6-8.9); Platelet Count 226 K/mcL (140-400); Red Blood Count 4.01 M/mcL (3.82-4.97); Red Cell Distribution Width 13.2 % (11.5-14.5); Segmented Neutrophils % 30.9 %
[2017-11-22] MEDS: *HR* HYDROmorphone (PF) 1 MG/ML SYRINGE IVP PRN ×4 (08:50→22:23)
[2017-11-22 09:13] LABS: Alanine Aminotransferase 7 Units/L (7-52); Albumin 3.6 g/dL (3.5-5.7); Albumin/Globulin Ratio 1.5 (1.1-2.2); Alkaline Phosphatase 74 Units/L (34-104); Aspartate Amino Transferase 10 Units/L (13-39); BUN/Creatinine Ratio 6 (6-26); Bilirubin,Total 0.3 mg/dL (0.3-1.0); Blood Urea Nitrogen 5 mg/dL (6-20); Calcium 8.9 mg/dL (8.6-10.3); Carbon Dioxide 24 mEq/L (23-29); Chloride 115 mEq/L (98-107); Globulin 2.4 g/dL (2.4-3.5); Glucose 90 mg/dL (70-105); Osmolality,Calculated 289 (280-300); Potassium 3.7 mEq/L (3.5-5.1); Sodium 141 mEq/L (136-145); eGFR For African Americans > 60 (> 60); eGFR For Non-African Americans > 60 (> 60)
--- NOTE | 2017-11-22 09:42 | Internal Med Progress Note ---
Date of Encounter: 11/22/17 Time of Encounter: 09:45 - Assessment and plan (1) RUQ abdominal pain Current Visit: Yes Status: Acute Assessment and plan: The patient continues to have right upper quadrant pain. Her HIDA scan seems to be normal. Do not have a clear etiology for her pain. We will continue with symptomatic treatment. We will ask surgery to evaluate and see there is any plans for further workup including an EGD. (2) Seizure disorder Current Visit: Yes Status: Chronic Assessment and plan: We will switch Keppra to oral. She is also on Topamax. (3) Acute kidney injury Current Visit: Yes Status: Acute Assessment and plan: Resolved with IV fluids. She is off IV fluids now. (4) DVT prophylaxis Current Visit: No Status: Acute Assessment and plan: Heparin subcutaneous - Constitutional Vitals: Temp Pulse Resp BP Pulse Ox 98.3 F 79 16 122/83 100 11/22/17 08:34 11/22/17 08:34 11/22/17 08:34 11/22/17 08:34 11/22/17 08:34 Exam: GEN: NAD CVS: RRR. S1, S2, No m/r/g RESP: CTAB ABD: Soft, right upper quadrant tenderness, no rebound tenderness,, ND, +BS EXT: No edema. 2+ DP. No rashes NEURO: Nonfocal Internal Medicine: Result - Labs CBC & Chem 7: 11/22/17 08:41 11/22/17 08:41 Labs: Short CBC 11/22/17 Range/Units 08:41 WBC 4.0 L (4.3-11.1) K/mcL Hgb 10.5 L (11.5-15.4) g/dL Hct 34.2 L (35.3-44.9) % Plt Count 226 (140-400) K/mcL Neutrophils # 1.2 L (1.6-8.9) K/mcL BMP 11/22/17 08:41 Sodium 141 Potassium 3.7 Chloride 115 H Carbon Dioxide 24 BUN 5 L Creatinine 0.86 Glucose 90 Calcium 8.9 Liver Function 11/22/17 Range/Units 08:41 Total Bilirubin 0.3 (0.3-1.0) mg/dL AST 10 L (13-39) Units/L ALT 7 (7-52) Units/L Alkaline Phosphatase 74 (34-104) Units/L Albumin 3.6 (3.5-5.7) g/dL - Impressions Impressions Liver Scan Nuclear Medicine 11/22/17 08:00 IMPRESSION: Normally visualized gallbladder ruling against acute cholecystitis. Mildly decreased gallbladder ejection fraction suggesting gallbladder dyskinesia. D/ / Nica Fowler MD / Nica Fowler MD Interpreting Provider: Nica Fowler MD Consult Discharge Plan - Plan Referrals: Pastora Varner MD [Primary Care Provider] -
--- NOTE | 2017-11-22 10:11 | General Surgery Progress Note ---
<Dequan Trejo - Last Filed: 11/22/17 10:17> Date of Encounter: 11/22/17 Time of Encounter: 10:07 - Assessment and Plan (1) RUQ abdominal pain Current Visit: Yes Status: Acute CT Scan abd/pelvis 11/20/2017 - no acute findings. U/S RUQ 11/21/2017 - Mildly thick-walled appearance of the gallbladder, though no evident gallstones or pericholecystic fluid. Positive for RUQ. neg for leukocystosis, fever, jaundice, shock (nml BP and HR), murphys, and AMS. Bili 0.3. Alk Phos 97. AST 12, ALT 8, lipase 20. - HIDA scan 11/22/2017 GB EF 36%. cholecystectomy scheduled for 11/23/[address] Cedeno - continue hydration - continue PPI - clears today. and NPO at midnight (2) Seizure disorder Current Visit: Yes Status: Chronic Prv hx of seizure, self reported acute seizures. per management of medicine team (3) Acute kidney injury Current Visit: Yes Status: Acute U/A trace blood. per management of medicine team. Subjective Patient reports: still having pain, voiding w/o difficulty, flatus, nausea, vomiting, afebrile Objective Vital Signs - Last 8 Hours Temp Pulse Resp BP Pulse Ox 11/22/17 08:34 98.3 F 79 16 122/83 100 11/22/17 05:16 97.3 F L 80 14 108/74 95 Intake and Output 11/21/17 11/22/17 11/22/17 23:59 07:59 15:59 Intake Total 1000 / 1000 240 / 240 Output Total 2350 / 2350 1300 / 1300 600 / 600 Balance -1350 / -1350 -1060 / -1060 -600 / -600 Intake: IV Fluids 1000 / 1000 0.9 % Sodium Chloride 1,000 ML 1000 / 1000 @ 125 mls/hr IVC .Q8H [facility] Rx#: [id number] Oral 0 / 0 240 / 240 Output: Urine 2350 / 2350 1300 / 1300 600 / 600 Other: Weight 70.307 kg Blood Glucose* 124 82 Patient Weight 11/22/17 23:59 Weight 70.307 kg - General physical appearance well developed, well nourished, moderate distress - Eyes PERRL, normal ocular movement - ENT normal mucosa, no hearing loss, no congestion - Neck Neck exam: no masses, no bruits - Respiratory normal expansion, normal respiratory effort, clear to percussion, clear to auscultation - Cardiovascular Cardiovascular exam: Present: RRR - Abdomen Abdomen: Present: bowel sounds present, soft, non tender - Integumentary no rash, no growths, no abnormal pigmentation - Neurologic normal coordination, normal sensation - Psychiatric oriented to time, oriented to person, oriented to place, speech is normal, memory intact - Labs 11/22/17 08:41 11/22/17 08:41 Diabetes panel 11/22/17 Range/Units 08:41 Sodium 141 (136-145) mEq/L Potassium 3.7 (3.5-5.1) mEq/L Chloride 115 H (98-107) mEq/L Carbon Dioxide 24 (23-29) mEq/L BUN 5 L (6-20) mg/dL Creatinine 0.86 (0.60-1.20) mg/dL Glucose 90 (70-105) mg/dL Calcium 8.9 (8.6-10.3) mg/dL AST 10 L (13-39) Units/L ALT 7 (7-52) Units/L Alkaline Phosphatase 74 (34-104) Units/L Albumin 3.6 (3.5-5.7) g/dL Calcium panel 11/22/17 Range/Units 08:41 Calcium 8.9 (8.6-10.3) mg/dL Albumin 3.6 (3.5-5.7) g/dL Pituitary panel 11/22/17 Range/Units 08:41 Sodium 141 (136-145) mEq/L Potassium 3.7 (3.5-5.1) mEq/L Chloride 115 H (98-107) mEq/L Carbon Dioxide 24 (23-29) mEq/L BUN 5 L (6-20) mg/dL Creatinine 0.86 (0.60-1.20) mg/dL Glucose 90 (70-105) mg/dL Calcium 8.9 (8.6-10.3) mg/dL Adrenal panel 11/22/17 Range/Units 08:41 Sodium 141 (136-145) mEq/L Potassium 3.7 (3.5-5.1) mEq/L Chloride 115 H (98-107) mEq/L Carbon Dioxide 24 (23-29) mEq/L BUN 5 L (6-20) mg/dL Creatinine 0.86 (0.60-1.20) mg/dL Glucose 90 (70-105) mg/dL Calcium 8.9 (8.6-10.3) mg/dL Total Bilirubin 0.3 (0.3-1.0) mg/dL AST 10 L (13-39) Units/L ALT 7 (7-52) Units/L Alkaline Phosphatase 74 (34-104) Units/L Albumin 3.6 (3.5-5.7) g/dL Consult Discharge Plan - Plan Referrals: Pastora Varner MD [Primary Care Provider] - <Ajay Landers - Last Filed: 11/22/17 14:17> Date of Encounter: 11/22/17 Objective Vital Signs - Last 8 Hours Temp Pulse Resp BP Pulse Ox 11/22/17 12:44 98.7 F 84 16 125/86 100 11/22/17 08:34 98.3 F 79 16 122/83 100 Intake and Output 11/21/17 11/22/17 11/22/17 23:59 07:59 15:59 Intake Total 1000 / 1000 240 / 240 600 / 600 Output Total 2350 / 2350 1300 / 1300 1300 / 1300 Balance -1350 / -1350 -1060 / -1060 -700 / -700 Intake: IV Fluids 1000 / 1000 0.9 % Sodium Chloride 1,000 ML 1000 / 1000 @ 125 mls/hr IVC .Q8H [facility] Rx#: [id number] Oral 0 / 0 240 / 240 600 / 600 Output: Urine 2350 / 2350 1300 / 1300 1300 / 1300 Other: Meal Lunch Percent of Meal Consumed 0% Weight 70.307 kg Blood Glucose* 124 82 Patient Weight 11/22/17 23:59 Weight 70.307 kg - Labs 11/22/17 08:41 11/22/17 08:41 Diabetes panel 11/22/17 Range/Units 08:41 Sodium 141 (136-145) mEq/L Potassium 3.7 (3.5-5.1) mEq/L Chloride 115 H (98-107) mEq/L Carbon Dioxide 24 (23-29) mEq/L BUN 5 L (6-20) mg/dL Creatinine 0.86 (0.60-1.20) mg/dL Glucose 90 (70-105) mg/dL Calcium 8.9 (8.6-10.3) mg/dL AST 10 L (13-39) Units/L ALT 7 (7-52) Units/L Alkaline Phosphatase 74 (34-104) Units/L Albumin 3.6 (3.5-5.7) g/dL Calcium panel 11/22/17 Range/Units 08:41 Calcium 8.9 (8.6-10.3) mg/dL Albumin 3.6 (3.5-5.7) g/dL Pituitary panel 11/22/17 Range/Units 08:41 Sodium 141 (136-145) mEq/L Potassium 3.7 (3.5-5.1) mEq/L Chloride 115 H (98-107) mEq/L Carbon Dioxide 24 (23-29) mEq/L BUN 5 L (6-20) mg/dL Creatinine 0.86 (0.60-1.20) mg/dL Glucose 90 (70-105) mg/dL Calcium 8.9 (8.6-10.3) mg/dL Adrenal panel 11/22/17 Range/Units 08:41 Sodium 141 (136-145) mEq/L Potassium 3.7 (3.5-5.1) mEq/L Chloride 115 H (98-107) mEq/L Carbon Dioxide 24 (23-29) mEq/L BUN 5 L (6-20) mg/dL Creatinine 0.86 (0.60-1.20) mg/dL Glucose 90 (70-105) mg/dL Calcium 8.9 (8.6-10.3) mg/dL Total Bilirubin 0.3 (0.3-1.0) mg/dL AST 10 L (13-39) Units/L ALT 7 (7-52) Units/L Alkaline Phosphatase 74 (34-104) Units/L Albumin 3.6 (3.5-5.7) g/dL - Attending Attestation I examined this patient and my medical decision-making was reviewed with the Resident Physician. I agree with the documented findings, disposition and treatment plan as described except to the extent set forth below. The patient was not seen in not evaluated today. I did discuss the findings with the resident. Dry had left the building the patient had her hepatobiliary scan that demonstrated a gallbladder ejection fraction of 36%. She continues to be symptomatic. I recommend laparoscopic cholecystectomy. The case was discussed with Dr. Cedeno. She has agreed to assume care of the patient at this point. Further treatment planning per Dr. Noe Landers MD FACS
[2017-11-22] MEDS ORDERED: *HR* HYDROmorphone (PF) 1 MG/ML SYRINGE IVP ONE (10:31)
[2017-11-22] MEDS: *HR* Heparin 5,000 UNIT/ML VIAL SQ SCH ×2 (11:16→17:12)
[2017-11-22] MEDS: Acetaminophen 325 MG TABLET PO PRN (13:55)
[2017-11-22] MEDS: levETIRAcetam 250 MG TABLET PO SCH (20:08)
[2017-11-23] MEDS ORDERED: *HR* HYDROmorphone (PF) 1 MG/ML SYRINGE IVP ONE (00:12)
[2017-11-23] MEDS: *HR* Heparin 5,000 UNIT/ML VIAL SQ SCH (04:56)
[2017-11-23 06:01] LABS: Basophils % 0.7 %; Eosinophils # 0.2 K/mcL (0.0-0.6); Eosinophils % 5.2 %; Hematocrit 34.8 % (35.3-44.9); Hemoglobin 10.6 g/dL (11.5-15.4); Immature Granulocytes % 0.2 % (0-4); Lymphocytes # 2.5 K/mcL (0.6-4.6); Lymphocytes % 62.4 %; Mean Corpuscular HGB Conc 30.5 g/dL (31.6-35.5); Mean Corpuscular Hemoglobin 25.9 pg (28.0-33.3); Mean Corpuscular Volume 84.9 fL (83.0-100.0); Monocytes # 0.3 K/mcL (0.0-1.3); Monocytes % 7.7 %; Platelet Count 231 K/mcL (140-400); Red Cell Distribution Width 13.2 % (11.5-14.5); Segmented Neutrophils % 23.8 %
[2017-11-23 06:23] LABS: BUN/Creatinine Ratio 7 (6-26); Blood Urea Nitrogen 6 mg/dL (6-20); Calcium 9.1 mg/dL (8.6-10.3); Carbon Dioxide 24 mEq/L (23-29); Chloride 115 mEq/L (98-107); Glucose 89 mg/dL (70-105); Osmolality,Calculated 293 (280-300); Potassium 3.6 mEq/L (3.5-5.1); Sodium 143 mEq/L (136-145); eGFR For African Americans > 60 (> 60); eGFR For Non-African Americans > 60 (> 60)
--- NOTE | 2017-11-23 08:00 | Internal Med Progress Note ---
Date of Encounter: 11/23/17 Time of Encounter: 08:00 - Assessment and plan (1) RUQ abdominal pain Current Visit: Yes Status: Acute Assessment and plan: The patient continues to have right upper quadrant pain. Her HIDA scan with an EF of 36%. Normal is 38%. Surgery is planning on laparoscopic cholecystectomy based on these findings but it is now pushed due to seizure episode at night. Continue pain control. We will follow-up on the patient after surgery. (2) Seizure disorder Current Visit: Yes Status: Chronic Assessment and plan: consult neurology. Continue with Keppra. She is also on Topamax. (3) Acute kidney injury Current Visit: Yes Status: Acute Assessment and plan: Resolved with IV fluids. She is off IV fluids now. (4) DVT prophylaxis Current Visit: No Status: Acute Assessment and plan: Heparin subcutaneous - Subjective Interval history: had a seizure at night apparently but no meds given. the patient does not think she had a seizure, however. surgery was pushed. Pain is well-controlled. Still has right upper quadrant pain. - Constitutional Vitals: Temp Pulse Resp BP Pulse Ox 98.3 F 76 14 107/67 95 11/23/17 04:05 11/23/17 04:05 11/23/17 04:05 11/23/17 04:05 11/23/17 04:05 Exam: GEN: NAD CVS: RRR. S1, S2, No m/r/g RESP: CTAB ABD: Soft, right upper quadrant tenderness, no rebound tenderness,, ND, +BS EXT: No edema. 2+ DP. No rashes NEURO: Nonfoc Internal Medicine: Result - Labs CBC & Chem 7: 11/23/17 05:34 11/23/17 05:34 Labs: Short CBC 11/22/17 11/23/17 Range/Units 08:41 05:34 WBC 4.0 L 4.0 L (4.3-11.1) K/mcL Hgb 10.5 L 10.6 L (11.5-15.4) g/dL Hct 34.2 L 34.8 L (35.3-44.9) % Plt Count 226 231 (140-400) K/mcL Neutrophils # 1.2 L 1.0 L (1.6-8.9) K/mcL BMP 11/22/17 11/23/17 08:41 05:34 Sodium 141 143 Potassium 3.7 3.6 Chloride 115 H 115 H Carbon Dioxide 24 24 BUN 5 L 6 Creatinine 0.86 0.81 Glucose 90 89 Calcium 8.9 9.1 Liver Function 11/22/17 Range/Units 08:41 Total Bilirubin 0.3 (0.3-1.0) mg/dL AST 10 L (13-39) Units/L ALT 7 (7-52) Units/L Alkaline Phosphatase 74 (34-104) Units/L Albumin 3.6 (3.5-5.7) g/dL - Impressions Impressions Liver Scan Nuclear Medicine 11/22/17 08:00 IMPRESSION: Normally visualized gallbladder ruling against acute cholecystitis. Mildly decreased gallbladder ejection fraction suggesting gallbladder dyskinesia. D/ / Nica Fowler MD / Nica Fowler MD Interpreting Provider: Nica Fowler MD Consult Discharge Plan - Plan Referrals: Pastora Varner MD [Primary Care Provider] -
[2017-11-23] MEDS: *HR* HYDROmorphone (PF) 1 MG/ML SYRINGE IVP PRN ×4 (08:10→21:03)
--- NOTE | 2017-11-23 10:52 | Neurology - Consult Note ---
Date of Encounter: 11/23/17 Time of Encounter: 10:44 Assessment and Plan (1) Seizure disorder Current Visit: Yes Status: Chronic Patient carries diagnosis of seizure disorder treated by Dr. Oscar Holliday at [facility]. Takes Keppra 1000mg bid and per history she has been doing well on Keppra 1000mg bid. She prefers not to change her seizure medication. Spell observed lasting short and not associated with tongue biting, urinary incontinence and no significant postictal phenomenon. She denies it being a seizure. Would keep her on Keppra 1000mg bid and topiramate 100mg daily. No changes. She is follow up with her primary neurologist at [facility]. Patients with seizure disorder may have increased risk of recurrent seizure during and immediately after anesthesia, the increased risk is discussed with the patient. Thank you very much for the consultation. Please call if you have any questions History of Present Illness Chief complaint: seizure HPI: Ms. Farley is a 31 year old female with known seizure disorder who was admitted to the hospital for gallbladder surgery. Reportedly she had a seizure at around 2:00am. Per Nursing report, she apparently notified nurse and when nurse came into the room she was unresponsive and her eyes rolled back and she shoke for few seconds and then regained her consciousness quickly. She does not appear to have significant postictal confusion or somnolence. Per nursing report , she told the nurse that she had a seizure and that she is going to have one. Today at the interview, she denies she had a seizure. she tells me that she knew what was going on and that she was given Dilaudid caused the problem. She states that when she has seizure she does not remember anything. She has been cared for her seizure by Dr. Holliday at [facility]. She takes keppra 1000m bid. She states that as long as she takes seizure medication she has no seizures. Few days ago when she was in the ER she had a seizure because she was not given seizure meds. She had a recent admission during 06/2017 and she was taking keppra 750mg bid at the time. She also takes topiramate 100mg daily for headaches. Currently she feels fine except the belly pain. Past Med Surg Social Fam HX - Past Medical History Medical history: DVT, seizures Psychiatric history: anxiety - Past Surgical History Surgical History: herniorrhaphy, hysterectomy - Social History Smoking Status: Never smoker Smokeless Tobacco Status: No Alcohol use: none Drug use: none - Family History Brother Living Status: Hx Family Cardiac Disorders: Yes (Heart Defect) Grandfather Living Status: Hx Family Cardiac Disorders: Yes (Stroke) Grandmother Living Status: Still Living Hx Family Cardiac Disorders: ([place]) Hx Family Endocrine Disorder: (DM) Medications and Allergies LevETIRAcetam [Keppra] 1,000 mg PO BID 04/19/16 [History] Topiramate [Topamax] 100 mg PO QAM 04/19/16 [History] Paroxetine HCl [Paxil] 40 mg PO DAILY 02/27/17 [History] Cranberry Conc/C/Bacill Coag [Azo Cranberry Tablet] 1 each PO BID 11/21/17 [ History] 3 Allergy/AdvReac Type Severity Reaction Status Date / Time No Known Allergies Allergy Verified 11/21/17 07:37 All Systems: A 10-system review of systems was performed and is negative for pertinent findings except as documented above in the HPI. Physical Examination - Vital Signs Vital Signs: Initial Vital Signs Temp Pulse Resp BP Pulse Ox 98.6 F 97 16 142/99 99 11/20/17 14:58 11/20/17 14:58 11/20/17 14:58 11/20/17 14:58 11/20/17 14:58 - Constitutional General appearance: comfortable - Neurologic Detailed motor examination: full strength in all major muscle groups Motor examination - right side: 04/05: deltoids, biceps, triceps, wrist flexion, wrist extension, doughnut dough mixer, hip flexors, tibialis Anterior, quadriceps, toe extension (EHL), plantarflexion Motor examination - left side: 5/5: deltoids, biceps, triceps, wrist flexion, wrist extension, hip flexors, doughnut dough mixer, quadriceps, tibialis Anterior, toe extension (EHL), plantarflexion Mental Status Examination: awake, alert, oriented to person, oriented to place, oriented to time, follows commands appropriately, answers questions appropriately, no agnosia, no aphasia, no aproxia Cranial nerve examination: PERRL, EOMI, visual amor intact, corneal reflexes brisk symmetrically, sensory to face intact, mastication intact, no facial asymmetry is present, no dysarthria, hearing is intact symmetrically, soft palate elevates bilaterally upon phonation, gag reflex intact, flexes SCM and trapezius muscles symmetrically with full power, tongue protrudes midline, no atrophy or facial fasiculations present Cerebellar examination: no dysmetria, performs finger to nose and heel to donald symmetrically without ataxia, no gait ataxia, no truncal ataxia, no difficulty with rapid alternating movements Results - Laboratory Findings CBC and BMP: 11/23/17 05:34 11/23/17 05:34 Abnormal lab findings: Abnormal lab results WBC 4.0 K/mcL (4.3-11.1) L 11/23/17 05:34 Hgb 10.6 g/dL (11.5-15.4) L 11/23/17 05:34 Hct 34.8 % (35.3-44.9) L 11/23/17 05:34 MCH 25.9 pg (28.0-33.3) L 11/23/17 05:34 MCHC 30.5 g/dL (31.6-35.5) L 11/23/17 05:34 Neutrophils # 1.0 K/mcL (1.6-8.9) L 11/23/17 05:34 Chloride 115 mEq/L (98-107) H 11/23/17 05:34 AST 10 Units/L (13-39) L 11/22/17 08:41 Serum Total Protein 6.0 g/dL (6.4-8.9) L 11/22/17 08:41 Urine Blood Trace (Negative) H 11/20/17 15:48 Consult Discharge Plan - Plan Referrals: Pastora Varner MD [Primary Care Provider] -
[2017-11-23] MEDS: Topiramate 100 MG TABLET PO SCH (11:10)
[2017-11-23] MEDS: levETIRAcetam 250 MG TABLET PO SCH (11:10)
[2017-11-23] MEDS ORDERED: *HR* FentaNYL (PF) 100 MCG/2 ML VIAL ONE (11:19)
[2017-11-23] MEDS ORDERED: *HR* Propofol 200 MG/20 ML VIAL IVP ONE (11:19)
[2017-11-23] MEDS ORDERED: *HR* Midazolam HCl 2 MG/2 ML VIAL ONE (11:19)
[2017-11-23] MEDS ORDERED: Lidocaine -MPF 2% 2 ML VIAL ONE (11:21)
[2017-11-23] MEDS ORDERED: Scopolamine Patch 1.5 MG PATCH.TD72 ONE (12:22)
[2017-11-23] MEDS ORDERED: *HR* Promethazine 25 MG/ML VIAL IVP PRN (12:28)
[2017-11-23] MEDS ORDERED: *HR* HYDROmorphone (PF) 1 MG/ML SYRINGE IVP PRN (12:28)
--- NOTE | 2017-11-23 12:28 | Anesthesia Evaluation PreOp ---
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 History: Seizures (very rarely now - usually only if she forgets to take her medication) Other Medical History: Denies Any Significant HX Anesthesia History: Past Anesthesia (hysterectomy, hernia repair), Problems ( nausea) Alcohol Use: none Drug use: none Medications and Allergies LevETIRAcetam [Keppra] 1,000 mg PO BID 04/19/16 [History] Topiramate [Topamax] 100 mg PO QAM 04/19/16 [History] Paroxetine HCl [Paxil] 40 mg PO DAILY 02/27/17 [History] Cranberry Conc/C/Bacill Coag [Azo Cranberry Tablet] 1 each PO BID 11/21/17 [ History] 3 Allergy/AdvReac Type Severity Reaction Status Date / Time No Known Allergies Allergy Verified 11/21/17 07:37 - Meds/Allergy Pre-op Review Medications Reviewed: Yes Allergies Reviewed: Yes Beta Blockers on Current Med List: No Anesthesia Results - Labs 11/23/17 05:34 11/23/17 05:34 - Imaging EKG: report reviewed, image reviewed (SR) Anesthesia Exam Last Vital Signs Temp 98.8 F 11/23/17 07:58 Pulse 73 11/23/17 07:58 Resp 14 11/23/17 07:58 BP 116/75 11/23/17 07:58 Pulse Ox 99 11/23/17 07:58 Weight: 70 kg NPO (# of Hours): > 8 hrs - HEENT Pupil (Motor): Pupils equal, EOMI Mallampati: I Teeth: Normal (braces) Oral Opening: Greater than 3 - SAP CRM DEVELOPER LOC: Oriented SAP CRM DEVELOPER Motor: Normal RUE, Normal LUE, Normal RLE, Normal LLE, Normal Face - Cardiac Rhythm: Regular Murmur: None - Pulmonary Breath Sounds: bilateral Clear Respiratory Effort: Symmetrical Anesthesia Assess/Plan ASA Score: 2 Modified Purvi Scale for Level of Consciousness: Cooperative, oriented, and tranquil Anesthetic Plan: General Monitoring Plan: Standard Monitors Recovery Plan: PACU
[2017-11-23] MEDS ORDERED: CefOXitin 2,000 MG VIAL ONE (12:32)
[2017-11-23] MEDS ORDERED: cefOXitin 2,000 MG in Water for inj. (sterile) 20 ML 10 ML IVP ONE (13:04)
[2017-11-23] MEDS ORDERED: *HR* Rocuronium Bromide 50 MG/5 ML VIAL ONE (13:07)
[2017-11-23] MEDS ORDERED: Ondansetron 4 MG/2 ML VIAL ONE (13:08)
[2017-11-23] MEDS ORDERED: Dexamethasone 4 MG/ML VIAL ONE (13:08)
[2017-11-23] MEDS ORDERED: Ketorolac 30 MG/ML VIAL ONE (13:23)
[2017-11-23] MEDS ORDERED: Neostigmine Methylsulfate 3 MG/3 ML SYRINGE ONE (13:24)
[2017-11-23] MEDS ORDERED: *HR* HYDROmorphone 2 MG/ML SYRINGE ONE (13:25)
--- NOTE | 2017-11-23 13:59 | Operative Note ---
Date of procedure: 11/23/17 Pre-op diagnosis: biliary dyskinesia Post-op diagnosis: same Procedure: laparoscopic cholecystectomy Complications: none immediate Anesthesia: GETA, local Local Anesthetics: 0.5% Sensorcaine HCL SubQ (cc) (30) Surgeon: Mariela Cedeno Sleeping Bag Filler Other: Bala Virgen Estimated blood loss (cc): 10 Specimen: gallbladder Condition: stable Disposition: PACU Procedure in Detail: The patient was brought into the operating suite and placed supine on the operating table. Sign-in was performed and everyone was in agreement. Anesthesia was induced and patient was endotracheally intubated by anesthesia without incident and they also placed an OG tube. The abdomen was prepped and draped in the usual sterile fashion. A timeout was performed again everyone was in agreement. A supraumbilical incision was made through the skin into the subcutaneous tissue with an 11 blade. Towel clamps were placed on either side of the umbilicus for retraction. S retractors were used to dissect down to the anterior abdominal wall linea alba fascia. A Veress needle was placed through this incision and a water drop test confirmed placement and the abdomen was insufflated. The abdomen was entered with a 5 mm 0 degree laparoscope on a 5 mm X-jc trocar. The area and entry was visualized was no bleeding and no apparent bowel injury. A 5 mm subxiphoid port was placed under direct visualization after first incising the skin with an 11 blade. A right upper quadrant subcostal position midclavicular line 5 mm port was placed under direct visualization after first incising skin with 11 blade. The laparoscope was placed in this and we exchanged the supraumbilical port for a 12 mm port under direct visualization. The last 5 mm port was placed in the right upper quadrant subcostal position anterior axillary line after first incising the skin with an 11 blade. The patient was placed in steep reverse Trendelenburg left side down position. The dome of the gallbladder was grasped and retracted cephalad. Omental adhesions to the body and infundibulum of the gallbladder were taken down bluntly with the [place]. The infundibulum was grasped and retracted laterally. Using the [place] we dissected out the cystic duct and cystic artery. Three 5 mm hemoclips were placed distally on the cystic duct one proximally and it was transected with curved scissors. The cystic artery was doubly clipped proximally, once distally and transected with curved scissors. The gallbladder was removed off the cystic plate with the Bovie. There was a little bit of biliary Any bleeding points were stopped with the Bovie. The gallbladder was placed in a laparoscopic Endo Catch bag and removed via the supraumbilical incision site. The inferior edge of the liver was bluntly retracted cephalad and the cystic plate was copiously irrigated with sterile saline. There was no bleeding or apparent bile leak from the cystic plate and the clips on the cystic artery and duct were intact. All irrigation was suctioned free from the abdomen. All insufflation was suctioned free from the abdomen and the ports removed. The abdominal wall at the supraumbilical incision site was closed with a 0 Vicryl [id number] stitch. 30 mL of 0.5% Marcaine was injected subcutaneously at the 4 port sites. The skin at the three 5 mm port sites were closed with 4-0 Monocryl interrupted subcuticular stitches. The skin at the supraumbilical incision site was closed with a 4-0 Monocryl running subcuticular stitch. Steri-Strips were applied to all wounds. The patient was awoken in the operating suite having tolerated the procedure well and were taken to PACU in stable condition after all lap and ensuring counts were correct at the end of the case.
--- NOTE | 2017-11-23 14:15 | Anesthesia Evaluation Post Op ---
Date of Encounter: 11/23/17 Time of Encounter: 14:15 - Vital Signs Vital Signs: Last Vital Signs Temp 98.8 F 11/23/17 07:58 Pulse 73 11/23/17 07:58 Resp 14 11/23/17 07:58 BP 116/75 11/23/17 07:58 Pulse Ox 99 11/23/17 07:58 - Lungs Lungs: Clear Ascult./Percussion - Airway Airway: Non-obstructed - Cardiovascular Regular Rate - Mental Status Mental Status: Alert & Oriented, Answers Appropriately - Pain Pain Scale: 4 - Nausea Vomiting Nausea Vomiting: Not Present - Hydration Hydration: NPO - Discharge PostOp Status: Transfer Patient to floor
[2017-11-23] MEDS ORDERED: Acetaminophen IV 1,000 MG/100 ML INFUS..BTL ONE (14:44)
[2017-11-23] MEDS ORDERED: 0.9 % Sodium Chloride 1,000 ML IVC SCH (15:21)
[2017-11-23] MEDS ORDERED: Naloxone 0.4 MG/ML INJ IVP PRN (15:21)
[2017-11-23] MEDS ORDERED: Ondansetron 4 MG/2 ML VIAL IVP PRN (15:21)
[2017-11-23] MEDS ORDERED: *HR* OxyCODONE/APAP 5/325 TABLET PO PRN (15:21)
[2017-11-23] MEDS ORDERED: *HR* Heparin 5,000 UNIT/ML VIAL SQ SCH (18:00)
[2017-11-23] MEDS ORDERED: levETIRAcetam 250 MG TABLET PO SCH (21:00)
[2017-11-24] MEDS: *HR* HYDROmorphone (PF) 1 MG/ML SYRINGE IVP PRN (00:30)
[2017-11-24 04:49] LABS: Basophils % 0.4 %; Eosinophils % 0.2 %; Hematocrit 35.4 % (35.3-44.9); Immature Granulocytes % 0.2 % (0-4); Lymphocytes # 1.5 K/mcL (0.6-4.6); Lymphocytes % 25.9 %; Mean Corpuscular HGB Conc 31.1 g/dL (31.6-35.5); Mean Corpuscular Hemoglobin 26.4 pg (28.0-33.3); Mean Corpuscular Volume 84.9 fL (83.0-100.0); Mean Platelet Volume 11.1 fL (9.4-12.4); Monocytes # 0.5 K/mcL (0.0-1.3); Monocytes % 9.5 %; Neutrophils # 3.7 K/mcL (1.6-8.9); Platelet Count 243 K/mcL (140-400); Red Blood Count 4.17 M/mcL (3.82-4.97); Red Cell Distribution Width 13.2 % (11.5-14.5); Segmented Neutrophils % 63.8 %
[2017-11-24 04:56] LABS: Alanine Aminotransferase 35 Units/L (7-52); Albumin/Globulin Ratio 1.5 (1.1-2.2); Alkaline Phosphatase 75 Units/L (34-104); Aspartate Amino Transferase 46 Units/L (13-39); BUN/Creatinine Ratio 10 (6-26); Bilirubin,Total 0.2 mg/dL (0.3-1.0); Blood Urea Nitrogen 7 mg/dL (6-20); Calcium 9.2 mg/dL (8.6-10.3); Carbon Dioxide 24 mEq/L (23-29); Chloride 112 mEq/L (98-107); Globulin 2.6 g/dL (2.4-3.5); Glucose 94 mg/dL (70-105); Osmolality,Calculated 292 (280-300); Potassium 3.8 mEq/L (3.5-5.1); Sodium 142 mEq/L (136-145); Total Protein 6.6 g/dL (6.4-8.9); eGFR For African Americans > 60 (> 60); eGFR For Non-African Americans > 60 (> 60)
[2017-11-24] MEDS ORDERED: Topiramate 100 MG TABLET PO SCH (09:00)
--- NOTE | 2017-11-24 09:40 | Discharge Summary ---
Date of Encounter: 11/24/17 Time of Encounter: 11:00 - Discharge Diagnosis (1) RUQ abdominal pain Priority: Primary Status: Acute (2) Seizure disorder Priority: Secondary Status: Chronic (3) Acute kidney injury Priority: Primary Status: Acute - Discharge Medications Prescriptions: OxyCODONE/APAP 5/325 [Percocet 5/325 MG] 1 each PO Q4HR PRN #12 tablet PRN Reason: Pain Home Medications: LevETIRAcetam [Keppra] 1,000 mg PO BID 04/19/16 [History] Topiramate [Topamax] 100 mg PO QAM 04/19/16 [History] Paroxetine HCl [Paxil] 40 mg PO DAILY 02/27/17 [History] Cranberry Conc/C/Bacill Coag [Azo Cranberry Tablet] 1 each PO BID 11/21/17 [ History] OxyCODONE/APAP 5/325 [Percocet 5/325 MG] 1 each PO Q4HR PRN #12 tablet 11/24/17 [Rx] Allergies/Adverse Reactions: 3 Allergy/AdvReac Type Severity Reaction Status Date / Time No Known Allergies Allergy Verified 11/21/17 07:37 Procedures/tests Complete & Pending: Procedures Performed prior 72 hours Category Date Time Status NM hepatobiliary w drug [NM] Stat Exams 11/22/17 08:00 Completed Date of admission: 11/20/17 23:26 Primary care physician: Pastora Varner Consults: 11/21/17 02:45 Consult to Surgery [CONS] Routine Consulting Provider: Surgery [facility] Reason for Consult: Intractable abdominal pain, GB thickening on RUQ Call Completed: No 11/23/17 09:15 Consult to Neurology [CONS] Stat Consulting Provider: Neurology [facility] Reason for Consult: seizure episode Call Completed: Yes - Patient Status Disposition: Home, Self-Care Condition: Fair Overall status at discharge: patient is back to baseline - Discharge Instructions Follow Up With: Pastora Varner MD [Primary Care Provider] - Mariela Cedeno MD [Partnered Physician] - (2 weeks Web request sent on 11/24) Forms: ED Satisfaction Letter, Work/School Release - Diet and Activity Activity: resume usual activities as tolerated Hospital course: Ms. Farley is a 31 year old female with PMH of seizure disorder who presented with 3 days worth of abdominal pain nausea and vomiting. She was seen in the ED 2 weeks prior to that was treated for urinary tract infection. She came in with mostly right upper quadrant pain. In the emergency department a CT abdomen and pelvis was done which was unremarkable. Right upper quadrant ultrasound showed mildly thickened wall of the gallbladder. There is no evidence for gallstones or pericholecystic fluid. HIDA scan was done which came back showing marginal EF of 36% with normal 38% . She told me that she was seen by Dr. Landers in the outpatient setting and at some point she was scheduled to get an EGD regarding her abdominal pain. This was not done at the time of me seeing her. I did consult with surgery. They did take the patient for the laparoscopic cholecystectomy which was done on 11/23/2017. She did well postoperatively and was stable for discharge on 11/24 2017 with follow-up to surgery. - Time Spent with Patient Total time spent providing and/or coordinating discharge services: Greater than 30 minutes - Constitutional Vitals: Temp Pulse Resp BP Pulse Ox 97.8 F 72 14 132/85 100 11/24/17 04:00 11/24/17 04:00 11/24/17 04:00 11/24/17 04:00 11/24/17 04:00 Exam: GEN: NAD CVS: RRR. S1, S2, No m/r/g RESP: CTAB ABD: Soft, NT, ND, +BS. laproscopic incisions noted with no drainage or erythema. EXT: No edema. 2+ DP, No rashes NEURO: Nonfocal - VTE Documentation of Mechanical Device: Intermittent pneumatic compression device
[2017-11-24 10:02] VITALS: BP 120/78
== END 2017-11-24 10:15 | disposition home or self-care (01) ==
LOC: 3ANU 14:56 → EMEROO 14:56 → 3ANU 23:44
PROVIDERS: ADMIT Student in an Organized Health Care Education/Training Program; ATTEND Family Medicine

== ENCOUNTER 2020-04-14 16:46 | Inpatient (IN) ==
[2020-04-14] MEDS ORDERED: Isovue-370 500 ML BOTTLE IVP ONE ×2 (17:27→17:42)
[2020-04-14 17:57] LABS: Basophils % 0.3 %; Eosinophils % 0.2 %; Hematocrit 41.8 % (35.3-44.9); Hemoglobin 13.1 g/dL (11.5-15.4); Immature Granulocytes % 0.3 % (0-4); Lymphocytes # 2.7 K/mcL (0.6-4.6); Lymphocytes % 23.6 %; Mean Corpuscular HGB Conc 31.3 g/dL (31.6-35.5); Mean Corpuscular Hemoglobin 26.9 pg (28.0-33.3); Mean Corpuscular Volume 85.8 fL (83.0-100.0); Mean Platelet Volume 11.5 fL (9.4-12.4); Monocytes # 0.8 K/mcL (0.0-1.3); Monocytes % 6.6 %; Platelet Count 249 K/mcL (140-400); Red Blood Count 4.87 M/mcL (3.82-4.97); Red Cell Distribution Width 13.7 % (11.5-14.5); White Blood Count 11.6 K/mcL (4.3-11.1)
[2020-04-14 18:16] LABS: BUN/Creatinine Ratio 17 (6-26); Blood Urea Nitrogen 16 mg/dL (6-20); Calcium 10.2 mg/dL (8.6-10.3); Carbon Dioxide 21 mEq/L (23-29); Chloride 109 mEq/L (98-107); Glucose 101 mg/dL (70-105); Osmolality,Calculated 285 (280-300); Potassium 3.7 mEq/L (3.5-5.1); Sodium 137 mEq/L (136-145); eGFR For African Americans > 60 (> 60); eGFR For Non-African Americans > 60 (> 60)
[2020-04-14 18:17] LABS: Troponin I < 0.03 ng/mL (< 0.04)
[2020-04-14] MEDS ORDERED: *HR* Rivaroxaban 10 MG TABLET PO STA (21:36)
[2020-04-14] MEDS ORDERED: *HR* Rivaroxaban 15 MG TABLET PO STA (21:37)
[2020-04-14] MEDS ORDERED: Aspirin 325 MG TABLET PO ONE (21:45)
[2020-04-14] MEDS ORDERED: Naloxone 0.4 MG/ML INJ IVP PRN (23:10)
[2020-04-14] MEDS: Topiramate 100 MG TABLET PO SCH (23:35)
[2020-04-14] MEDS: PARoxetine 20 MG TABLET PO SCH (23:35)
[2020-04-14] MEDS: levETIRAcetam 250 MG TABLET PO SCH (23:35)
[2020-04-14] MEDS: PLECANATIDE PO SCH (23:37)
[2020-04-15] MEDS ORDERED: Ketorolac 15 MG/ML VIAL IVP PRN (00:09)
[2020-04-15] MEDS ORDERED: *HR* LORazepam 2 MG/ML VIAL IVP ONE ×2 (00:55→09:53)
[2020-04-15] MEDS ORDERED: Ondansetron 4 MG/2 ML VIAL ONE (00:58)
[2020-04-15] MEDS ORDERED: *HR* LORazepam 2 MG/ML VIAL IVP PRN (01:02)
[2020-04-15 01:23] LABS: Hematocrit 37.6 % (35.3-44.9); Hemoglobin 11.6 g/dL (11.5-15.4); Mean Corpuscular HGB Conc 30.9 g/dL (31.6-35.5); Mean Corpuscular Hemoglobin 26.7 pg (28.0-33.3); Mean Corpuscular Volume 86.6 fL (83.0-100.0); Mean Platelet Volume 11.5 fL (9.4-12.4); Platelet Count 214 K/mcL (140-400); Red Blood Count 4.34 M/mcL (3.82-4.97); Red Cell Distribution Width 13.5 % (11.5-14.5); White Blood Count 10.4 K/mcL (4.3-11.1)
[2020-04-15 01:44] LABS: BUN/Creatinine Ratio 18 (6-26); Blood Urea Nitrogen 16 mg/dL (6-20); Calcium 9.2 mg/dL (8.6-10.3); Carbon Dioxide 22 mEq/L (23-29); Chloride 112 mEq/L (98-107); Glucose 102 mg/dL (70-105); Osmolality,Calculated 291 (280-300); Potassium 3.3 mEq/L (3.5-5.1); Sodium 140 mEq/L (136-145); eGFR For African Americans > 60 (> 60); eGFR For Non-African Americans > 60 (> 60)
[2020-04-15 01:45] LABS: BUN/Creatinine Ratio 18 (6-26); Blood Urea Nitrogen 16 mg/dL (6-20); Calcium 9.2 mg/dL (8.6-10.3); Carbon Dioxide 22 mEq/L (23-29); Chloride 112 mEq/L (98-107); Glucose 101 mg/dL (70-105); Magnesium 2.1 mg/dL (1.6-2.6); Osmolality,Calculated 291 (280-300); Phosphorous 3.2 mg/dL (2.7-4.5); Potassium 3.3 mEq/L (3.5-5.1); Sodium 140 mEq/L (136-145); eGFR For African Americans > 60 (> 60); eGFR For Non-African Americans > 60 (> 60)
[2020-04-15] MEDS: PLECANATIDE PO SCH (09:38)
[2020-04-15] MEDS: *HR* Rivaroxaban 15 MG TABLET PO SCH ×2 (09:38→21:06)
[2020-04-15] MEDS: levETIRAcetam 250 MG TABLET PO SCH ×2 (09:38→21:06)
[2020-04-15] MEDS: Topiramate 100 MG TABLET PO SCH ×2 (09:38→21:06)
[2020-04-15] MEDS: PARoxetine 20 MG TABLET PO SCH (09:38)
[2020-04-15] MEDS: Ketorolac 15 MG/ML VIAL IVP PRN (14:36)
[2020-04-15] MEDS: hydrOXYzine pamoate 25 MG CAPSULE PO PRN (21:07)
[2020-04-15] MEDS: *HR* OxyCODONE Immed Rel 5 MG TABLET PO PRN (22:52)
[2020-04-16] MEDS: Ketorolac 15 MG/ML VIAL IVP PRN ×2 (05:47→14:39)
[2020-04-16 06:45] LABS: BUN/Creatinine Ratio 15 (6-26); Blood Urea Nitrogen 16 mg/dL (6-20); Calcium 9.4 mg/dL (8.6-10.3); Carbon Dioxide 22 mEq/L (23-29); Chloride 111 mEq/L (98-107); Glucose 77 mg/dL (70-105); Magnesium 2.1 mg/dL (1.6-2.6); Osmolality,Calculated 290 (280-300); Phosphorous 4.1 mg/dL (2.7-4.5); Potassium 3.9 mEq/L (3.5-5.1); Sodium 140 mEq/L (136-145); eGFR For African Americans > 60 (> 60); eGFR For Non-African Americans 59 (> 60)
[2020-04-16] MEDS: PLECANATIDE PO SCH (07:53)
[2020-04-16] MEDS: levETIRAcetam 250 MG TABLET PO SCH ×2 (08:12→20:46)
[2020-04-16] MEDS: Topiramate 100 MG TABLET PO SCH ×2 (08:12→20:42)
[2020-04-16] MEDS: PARoxetine 20 MG TABLET PO SCH (08:12)
[2020-04-16] MEDS: *HR* Rivaroxaban 15 MG TABLET PO SCH ×2 (08:13→20:42)
[2020-04-16] MEDS: *HR* OxyCODONE Immed Rel 5 MG TABLET PO PRN ×2 (12:31→20:46)
[2020-04-16] MEDS: hydrOXYzine pamoate 25 MG CAPSULE PO PRN ×2 (14:39→21:47)
[2020-04-16] MEDS ORDERED: Melatonin 3 MG TABLET PO ONE (21:19)
[2020-04-16] MEDS ORDERED: *HR* OxyCODONE Immed Rel 5 MG TABLET PO ONE (21:19)
[2020-04-17 07:35] VITALS: BP 113/75
[2020-04-17] MEDS: levETIRAcetam 250 MG TABLET PO SCH (08:36)
[2020-04-17] MEDS: Topiramate 100 MG TABLET PO SCH (08:36)
[2020-04-17] MEDS: PARoxetine 20 MG TABLET PO SCH (08:36)
[2020-04-17] MEDS: PLECANATIDE PO SCH (08:37)
[2020-04-17] MEDS: *HR* Rivaroxaban 15 MG TABLET PO SCH (08:37)
[2020-04-17] MEDS: hydrOXYzine pamoate 25 MG CAPSULE PO PRN (08:45)
== END 2020-04-17 09:51 | disposition home or self-care (01) | DRG 301 ==
LOC: EMEROOARM 16:46 → 3BNU 16:46 → SUATTDRO 21:49 → 3BNU 22:21
PROVIDERS: ADMIT Internal Medicine; ATTEND Internal Medicine